=== PATIENT | male | born 1955 | race Caucasian/White ===

== ENCOUNTER 2020-01-21 23:55 | Emergency (ER) | payer MEDICARE, OTHER, SELFPAY ==
[2020-01-22 00:13] VITALS: BP 152/88; PULSE 70; RESP 18; TEMP 35.8; O2SAT 97; BMI 33.9
--- NOTE | 2020-01-22 00:41 | ECG_ITS ---
Test Reason : REPEAT Blood Pressure : / mmHG Vent. Rate : 060 BPM Atrial Rate : 060 BPM P-R Int : 208 ms QRS Dur : 106 ms QT Int : 410 ms P-R-T Axes : 059 -59 -25 degrees QTc Int : 410 ms Normal sinus rhythm Left anterior fascicular block Nonspecific T wave abnormality When compared with ECG of 22-JAN-2020 00:03, No significant change was found Referred By: Lizbeth Shaver Electronically Signed By:FADI CÁRDENAS MD
--- NOTE | 2020-01-22 00:42 | ED_ITS ---
HPI - Chest Pain General Chief Complaint: Chest Pain Stated Complaint: CHEST PAIN Time Seen by Provider: 01/22/20 00:28 Source: patient Mode of arrival: ambulatory Limitations: no limitations History of Present Illness HPI narrative: patient comes to the hospital complaining of chest pressure for 7 hours now. Patient states he was at home watching TV when he had a sudden onset sensation of chest pressure in the left side of his chest. Patient denies shortness of breath, diaphoresis, or chest pain. Patient states the pressure has been constant, tried to ignore the symptoms, however he has a significant family history of cardiac disease. Patient denies any cardiac history for himself. MD complaint: other ( Pressure) Onset (ago): hour(s) Timing of current episode: constant Prior episodes: Yes Onset: during rest Pain location: left chest Pain radiation: none Severity: moderate Related Data Allergies Allergy/AdvReac Type Severity Reaction Status Date / Time No Known Allergies Allergy Verified 01/22/20 00:18 [No Known Allergies*] Review of Systems Review of Systems: Constitutional : No Weight loss, No Fever, No Chills, No Night Sweats, No Fatigue, No Malaise ENT/Mouth : No Hearing loss, No Ear Pain, No Nasal Congestion, No Sinus Pain, No Hoarseness, No sore throat, No Rhinorrhea, No Swallowing Difficulty Eyes: No Eye Pain, No Swelling, No Redness, No Foreign Body, No Discharge, No Vision Changes Cardiovascular : No Chest Pain, mother chest pressure on the left side, No SOB, No Dyspnea on Exertion, No Orthopnea, No Edema, No Palpitations Respiratory : No Cough, No Sputum, No Wheezing, No Smoke Exposure, No Dyspnea Gastrointestinal : No Nausea, No Vomiting, No Diarrhea, No Constipation, No abdominal Pain, No Hematochezia, No Melena Genitourinary : no irregular bleeding, No Dysuria, No Urinary Frequency, No Hematuria, No Urinary Incontinence, No Urgency, No Flank Pain, No Urinary Flow Changes, No Hesitancy Musculoskeletal : No joint pain, No Myalgias, No Joint Swelling Skin : No Skin Lesions, No rash Neuro : No Weakness, No Numbness, No Paresthesias, No Loss of Consciousness, No Dizziness, No Headache Psych : No Anxiety/Panic, No Depression, No SI/HI/AH/VH, No Social Issues, Heme/Lymph: No Bruising, No Bleeding,No Lymphadenopathy Endocrine : No Polyuria, No Polydipsia, No Temperature Intolerance PMF Past Medical History Medical History Hx of substance abuse Family History Family History (Updated 01/22/20 @ 00:44 by Lizbeth Shaver MD) Other Coronary artery disease Social History Social History Alcohol intake: never Smoking Status: Never smoker Use of substances other than those prescribed or required for medical reasons: No Advance Directives: No Advance Directives Information Provided: No Physical Exam Vital Signs: Vital Signs: Vital Signs Temp Pulse Resp BP Pulse Ox 01/22/20 04:16 66 16 128/81 97 01/22/20 02:47 67 14 01/22/20 00:13 96.5 F L 70 18 152/88 H 97 Body Mass Index 33.9 Appearance: Alert. Oriented X3. No acute distress. Eyes: Pupils equal, round and reactive to light. ENT: Pharynx normal. Neck: Normal inspection. Neck supple. No lymph nodes noted. No crepitus CVS: Normal heart rate and rhythm. Pulses normal. Normal S1 and S2, chest pressure did not improve or worsen with palpation Respiratory: No respiratory distress. Breath sounds normal. No Wheezing. No rales Abdomen: Soft and nontender. No rigidity. No distention. good BS x4 Skin: Skin warm and dry. Normal skin color. Normal skin turgor. Extremities: No lower extremity edema. No lower extremity edema. No Lacerations. No Rash Neuro: Oriented X 3. No motor deficit. No sensory deficit. Moving all extermities. No slurred speech. Course Reevaluation(s) Reevaluation #1: patient states he has very mild pressure, no chest pain, I discussed with the patient that his troponin was elevated, without have any previous troponins to compare it. at 04:00, troponin 2. Will be recheck. Troponin 2. Improved, patient is completely asymptomatic. I discussed with the patient that if he continues having chest pressure, he would likely need a stress test. EKG 2: sinus rhythm, heart rate 60, QTC 410, nonspecific T-wave inversions, unchanged from previous EKG MDM - Chest Pain Lab Data Result diagrams: 01/22/20 00:58 01/22/20 00:58 Labs: Lab Results 01/22/20 01/22/20 01/22/20 Range/Units 00:58 00:58 00:58 WBC 5.6 (4.8-10.8) X10*3/uL RBC 4.27 L (4.60-5.80) X10*6/uL Hgb 13.3 L (14.0-18.0) g/dl Hct 39.7 L (42-52) % MCV 93.0 (80-98) fL MCH 31.1 (27.0-33.0) pg MCHC 33.5 (31.0-36.0) g/dl RDW 13.2 (11.0-16.0) % Plt Count 165 (160-400) X10*3/uL MPV 10.2 (9.4-12.4) fL Immature Gran % (Auto) 0.2 (0.0-0.4) % Neut % (Auto) 58.5 (45-73) % Lymph % (Auto) 24.4 (20-40) % [place] % (Auto) 11.2 H (2-11) % Eos % (Auto) 5.3 H (0-4) % Baso % (Auto) 0.4 (0-2) % Lymph # (Auto) 1.4 (1.2-4.9) X10*3/uL [place] # (Auto) 0.6 (0.1-1.2) X10*3/uL Eos # (Auto) 0.3 (0.0-0.4) X10*3/uL Baso # (Auto) 0.0 (0.0-0.2) X10*3/uL Abs Immat Gran (auto) 0.01 (0.00-0.03) X10*3/uL Absolute Neuts (auto) 3.3 (2.0-8.3) X10*3/uL Absolute Nucleated RBC 0.000 (0.0-0.012) X10*3/uL Nucleated RBC % (auto) 0.0 (0.0-0.2) /100WBC Sodium 139 (135-145) mmol/L Potassium 4.5 (3.3-5.1) mmol/l Chloride 107 (96-108) mmol/L Carbon Dioxide 26 (22-29) mmol/L Anion Gap 11 L (12-20) BUN 24 H (9-16) mg/dL Creatinine 0.95 (0.5-1.4) mg/dL Estim Creat Clear Calc 99.4 Estimated GFR > 60 Random Glucose 103 (60-115) mg/dL Calcium 8.8 (8.4-10.2) mg/dL Troponin I High Sens 10.4 (<3.5-35.0) ng/L 01/22/20 Range/Units 04:14 WBC (4.8-10.8) X10*3/uL RBC (4.60-5.80) X10*6/uL Hgb (14.0-18.0) g/dl Hct (42-52) % MCV (80-98) fL MCH (27.0-33.0) pg MCHC (31.0-36.0) g/dl RDW (11.0-16.0) % Plt Count (160-400) X10*3/uL MPV (9.4-12.4) fL Immature Gran % (Auto) (0.0-0.4) % Neut % (Auto) (45-73) % Lymph % (Auto) (20-40) % [place] % (Auto) (2-11) % Eos % (Auto) (0-4) % Baso % (Auto) (0-2) % Lymph # (Auto) (1.2-4.9) X10*3/uL [place] # (Auto) (0.1-1.2) X10*3/uL Eos # (Auto) (0.0-0.4) X10*3/uL Baso # (Auto) (0.0-0.2) X10*3/uL Abs Immat Gran (auto) (0.00-0.03) X10*3/uL Absolute Neuts (auto) (2.0-8.3) X10*3/uL Absolute Nucleated RBC (0.0-0.012) X10*3/uL Nucleated RBC % (auto) (0.0-0.2) /100WBC Sodium (135-145) mmol/L Potassium (3.3-5.1) mmol/l Chloride (96-108) mmol/L Carbon Dioxide (22-29) mmol/L Anion Gap (12-20) BUN (9-16) mg/dL Creatinine (0.5-1.4) mg/dL Estim Creat Clear Calc Estimated GFR Random Glucose (60-115) mg/dL Calcium (8.4-10.2) mg/dL Troponin I High Sens 8.6 (<3.5-35.0) ng/L ABG Data Attestation: I personally reviewed and interpreted this ABG as follows: ( sinus rhythm, heart rate 69, QTC 443, occasional PVCs, nonspecific T-wave inversions in lead 3, no ST segment changes) Scores Heart Score History: -0- slightly suspicious ECG: -1- non specific repolarization disturbance Age: -2- > or = 65 Risk factory: -0- no risk factors known Troponin: -0- < or = normal limit Score: 3 Risk: 1.7% Discharge Plan Discharge Clinical Impression: Left chest pressure Patient Disposition: Home, Self-Care Instructions: Chest Pain (ED) Additional Instructions: please talk to your primary care physician about your ER visit, you may need a stress test. Please follow-up with your primary care physician tomorrow. If you have any worsening or new symptoms, please return to the emergency room or call 911
[2020-01-22] MEDS: Aspirin Enteric Coated 325 MG TABLET.DR PO (01:01)
[2020-01-22 01:02] LABS: Basophils Percent Auto 0.4 % (0-2); Eosinophils Absolute Auto 0.3 X10*3/uL (0.0-0.4); Eosinophils Percent Auto 5.3 % (0-4); Hematocrit 39.7 % (42-52); Hemoglobin 13.3 g/dl (14.0-18.0); Imm Gran Abs Auto 0.01 X10*3/uL (0.00-0.03); Imm Gran Pct Auto 0.2 % (0.0-0.4); Lymphocytes Absolute Auto 1.4 X10*3/uL (1.2-4.9); Lymphocytes Percent Auto 24.4 % (20-40); Mean Corpuscular HGB Conc 33.5 g/dl (31.0-36.0); Mean Corpuscular Hemoglobin 31.1 pg (27.0-33.0); Mean Platelet Volume 10.2 fL (9.4-12.4); Monocytes Absolute Auto 0.6 X10*3/uL (0.1-1.2); Monocytes Percent Auto 11.2 % (2-11); Neutrophils Absolute Auto 3.3 X10*3/uL (2.0-8.3); Neutrophils Percent Auto 58.5 % (45-73); Platelet Count 165 X10*3/uL (160-400); Red Blood Count 4.27 X10*6/uL (4.60-5.80); Red Cell Distribution Width 13.2 % (11.0-16.0); White Blood Count 5.6 X10*3/uL (4.8-10.8)
[2020-01-22 01:03] LABS: MANUAL DIFF FLAG NO
[2020-01-22 01:36] LABS: Anion Gap 11 (12-20); Blood Urea Nitrogen 24 mg/dL (9-16); Calcium 8.8 mg/dL (8.4-10.2); Carbon Dioxide 26 mmol/L (22-29); Chloride 107 mmol/L (96-108); Creatinine Clr Calc Pharmacy 99.4; Estimated Glomerular Filt Rate > 60; Glucose Random 103 mg/dL (60-115); Potassium 4.5 mmol/l (3.3-5.1); Sodium 139 mmol/L (135-145)
[2020-01-22 01:45] LABS: Troponin-I High Sensitivity 10.4 ng/L (<3.5-35.0)
[2020-01-22 02:47] VITALS: PULSE 67; RESP 14
--- NOTE | 2020-01-22 03:40 | ECG_ITS ---
Test Reason : CHEST PAIN Blood Pressure : / mmHG Vent. Rate : 069 BPM Atrial Rate : 069 BPM P-R Int : 208 ms QRS Dur : 110 ms QT Int : 414 ms P-R-T Axes : 049 -56 -07 degrees QTc Int : 443 ms Normal sinus rhythm Left anterior fascicular block Nonspecific T wave abnormality Inferior leads Abnormal ECG No previous ECGs available Referred By: Lizbeth Shaver Electronically Signed By:FADI CÁRDENAS MD
[2020-01-22 04:16] VITALS: BP 128/81; PULSE 66; RESP 16; O2SAT 97
[2020-01-22 04:52] LABS: Troponin-I High Sensitivity 8.6 ng/L (<3.5-35.0)
== END 2020-01-22 05:29 | disposition home or self-care (01) ==
PROVIDERS: Emergency Provider Emergency Medicine; PCP Internal Medicine
DX: R07.9 Chest pain, unspecified (principal)
CPT/HCPCS: 36415; 80048; 84484; 85025; 93005; 99284

== ENCOUNTER 2021-04-25 18:08 | Emergency (ER) | payer MEDICARE, SELFPAY ==
--- NOTE | ~2021-04-25 | XR_ITS ---
EXAMINATION: XR CHEST CLINICAL INFORMATION: Shortness of breath COMPARISON: Right clavicle films 07/03/2018 TECHNIQUE: Frontal view of the chest was obtained. FINDINGS: The heart and pulmonary vessels appear normal. There is question of ill-defined infiltrate and some increased density right infrahilar region and subtle airspace disease cannot be excluded. No gross consolidation. No pleural effusions. Old healed right clavicular fracture present. XR/XR chest 1V IMPRESSION: Question of subtle infiltrates right lung.
[2021-04-25 18:28] VITALS: BP 138/78; PULSE 91; RESP 18; TEMP 37; O2SAT 96; BMI 29.8
[2021-04-25 19:22] LABS: MANUAL DIFF FLAG NO
[2021-04-25 19:25] LABS: Basophils Percent Auto 0.2 % (0-2); Eosinophils Absolute Auto 0.3 X10*3/uL (0.0-0.4); Eosinophils Percent Auto 6.7 % (0-4); Hematocrit 44.7 % (42.0-52.0); Hemoglobin 14.6 g/dl (14.0-18.0); Imm Gran Abs Auto 0.01 X10*3/uL (0.00-0.03); Imm Gran Pct Auto 0.2 % (0.0-0.4); Lymphocytes Absolute Auto 0.9 X10*3/uL (1.2-4.9); Mean Corpuscular HGB Conc 32.7 g/dl (31.0-36.0); Mean Corpuscular Hemoglobin 30.9 pg (27.0-33.0); Mean Corpuscular Volume 94.7 fL (80.0-98.0); Monocytes Absolute Auto 0.8 X10*3/uL (0.1-1.2); Monocytes Percent Auto 17.9 % (2-11); Neutrophils Absolute Auto 2.4 x10*3/uL (2.0-8.3); Platelet Count 173 X10*3/uL (160-400); Red Blood Count 4.72 X10*6/uL (4.60-5.80); Red Cell Distribution Width 13.1 % (11.0-16.0); White Blood Count 4.3 X10*3/uL (4.8-10.8)
[2021-04-25 19:38] LABS: Anion Gap 13 (12-20); Blood Urea Nitrogen 15 mg/dL (9-16); Calcium 9.5 mg/dL (8.4-10.2); Carbon Dioxide 30 mmol/L (22-29); Chloride 102 mmol/L (96-108); Creatinine Clr Calc Pharmacy 99.6; Estimated Glomerular Filt Rate > 60; Glucose Random 95 mg/dL (60-115); Potassium 3.9 mmol/L (3.3-5.1); Sodium 141 mmol/L (135-145)
[2021-04-25 19:59] VITALS: PULSE 90; RESP 32; O2SAT 95
--- NOTE | 2021-04-25 20:00 | PC.NURSE ---
pt is feeling sob, has his inhaler with him and used it 3x sat 95% and still feels sob. rr 32 with pt talking in full sentences, skin pink warm and dry. rr has relaxed now to 22 and with talking sat go as high as 97% wheezing noted.
[2021-04-25 20:01] LABS: Influenza A PCR NEGATIVE (Negative); Influenza B PCR NEGATIVE (Negative); Resp Syncy Virus RNA Qual PCR NEGATIVE (Negative); SARS COV2 PCR INHOUSE POSITIVE (Negative)
== END 2021-04-25 20:59 | disposition left against medical advice (07) ==
PROVIDERS: Emergency Provider Emergency Medicine
DX: U07.1 COVID-19 (principal); J45.909 Unspecified asthma, uncomplicated
CPT/HCPCS: 0241U; 71045; 80048; 85025; 99283

== ENCOUNTER 2021-04-26 07:07 | Emergency (ER) | payer MEDICARE, SELFPAY ==
[2021-04-26 07:14] VITALS: BP 127/74; PULSE 94; RESP 19; TEMP 36.6; O2SAT 96; BMI 29.9
[2021-04-26 08:00] VITALS: BP 135/84; PULSE 82; RESP 18; TEMP 36.9; O2SAT 96
--- NOTE | 2021-04-26 08:22 | ED_ITS ---
HPI - URI/Sore Throat General Chief Complaint: Upper Respiratory Symptoms Stated Complaint: SOB Time Seen by Provider: 04/26/21 08:02 Source: patient Mode of arrival: ambulatory Limitations: no limitations History of Present Illness HPI Narrative: patient presented with upper respiratory symptoms, cough or congestion. He was seen last night he had a chest x-ray and labs a COVID test which was positive but he left before being seen by a provider here return now this morning for evaluation. He is complaining of a cough for a congestive and a denies any fever he has history of asthma MD elicited complaint: cough Pertinent past history: asthma Onset (ago): day(s) (2) Consistency: constant Severity: moderate Description of mucous: clear Able to tolerate fluids by mouth: Yes Exacerbating factors: nothing Relieving factors: nothing Related Data Home Medications Medication Instructions Recorded Confirmed albuterol sulfate 90 mcg/actuation 2 puff INHALATION Q6H PRN 02/08/20 01/17/21 aerosol inhaler (ProAir HFA) Previous Rx's Medication Instructions Recorded valacyclovir 1 gram tablet 1,000 mg PO Q8H 7 Days #21 tab 01/17/21 albuterol sulfate 90 mcg/actuation 1 inh INHALATION QID PRN #8.5 g 04/26/21 aerosol inhaler (ProAir HFA) azithromycin 250 mg tablet 250 mg PO DAILY 6 Days #6 tab 04/26/21 prednisone 20 mg tablet 60 mg PO DAILY 4 Days #12 tab 04/26/21 Allergies Allergy/AdvReac Type Severity Reaction Status Date / Time No Known Allergies Allergy Verified 01/17/21 10:44 [No Known Allergies*] Review of Systems Review of Systems: Yes all other systems are reviewed and are negative Constitutional: Constitutional: Reports no additional constitutional complaints Cardiovascular: Cardiovascular: Reports no additional cardiovascular complaints Respiratory: Respiratory: Reports no additional respiratory complaints Musculoskeletal: Musculoskeletal: Reports no additional musculoskeletal complaints Psychiatric: Psychiatric: Reports no additional psychiatric complaints PMFSH Past Medical History Medical History Generalized anxiety disorder Hx of substance abuse Tick bite of back Surgical History No pertinent past surgical history Family History Family History Father No problems noted. Mother No problems noted. Other Coronary artery disease Substance use disorder Social History Social History Housing: Condominium Alcohol intake: never Patient Tobacco Use Status: Never used Tobacco e-Cigarette/Vaping Use: Never Used Second Hand Smoke Exposure: Yes Advance Directives: Yes Advance Directives Information Provided: No Advance Directives on File: No service: No Current occupational status: employed and retired Physical Exam Vital Signs: Vital Signs: Last Vital Signs Temp 98.4 F 04/26/21 08:00 Pulse 82 04/26/21 08:55 Resp 18 04/26/21 08:55 BP 129/87 04/26/21 08:55 Pulse Ox 96 04/26/21 08:55 BMI result Body Mass Index 29.9 Const: General: cooperative and comfortable Nutritional Appearance: well nourished Orientation/consciousness: oriented to person and patient oriented x3 Limitations: no limitations HENMT: Head: Yes normal to inspection General nose exam: Normal external no se present Face and sinus: Yes normal facial exam Mouth: Normal oral and palatal mucosa present Teeth and gingiva: dentition normal Throat: Yes posterior oropharynx normal Neck: Neck: Yes normal visual inspection and Yes full ROM Thyroid: Thyroid normal Chest: Chest palpation & inspection: normal inspection of the chest Resp: Effort & Inspection: normal respiratory effort Auscultation: wheezes Cardio: Jugular venous distension: no JVD Palpation: normal PMI Rate: regular rate Rhythm: regular rhythm GI: Inspection: Yes normal to inspection Palpation (GI): Soft to palpation and not firm Percussion: Yes normal to percussion : General: Yes no CVA tenderness Back/Spine/Pelvis: Back: no CVA tenderness Skin: General skin exam: no rashes or lesions noted and elasticity normal Lesions: no lesions Rashes: no rashes Wounds: no wounds Neuro: General: oriented to person and patient oriented x3 Cranial nerves: Yes CN's II-XII intact bilaterally Cognition (Neuro): normal cognition Gait exam (Neuro): Normal gait present MDM - URI/Sore Throat MDM Narrative Medical decision making narrative: I reviewed the labs done yesterday, and an essential normal CBC and chemistry, his COVID test was positive chest x-ray done yesterday showed a question of subtle right lower lobe in. At this point is oxygenating well is not in distress he can be discharged home . I will give him antibiotic because of the question right lower lobe infiltrate and asthma as comorbidity Discharge Plan Discharge Clinical Impression: COVID-19 Patient Disposition: Home, Self-Care Instructions: COVID-19 (Coronavirus Disease 2019) (ED) Prescriptions: New azithromycin 250 mg tablet 250 mg PO DAILY 6 Days Qty: 6 RF: 0 prednisone 20 mg tablet 60 mg PO DAILY 4 Days Qty: 12 RF: 0 albuterol sulfate [ProAir HFA] 90 mcg/actuation HFA aerosol inhaler 1 inh inhalation QID PRN (Reason: shortness of breath or wheezing) Qty: 8.5 RF: 0 No Action albuterol sulfate [ProAir HFA] 90 mcg/actuation HFA aerosol inhaler 2 puff inhalation Q6H PRNRF: 0 valacyclovir 1 gram tablet 1,000 mg PO Q8H 7 Days Qty: 21 RF: 0 Interventions: ED Discharge Assessment Last Done: 04/26/21 09:01 Discharge Date/Time: 04/26/21 09:02
[2021-04-26] MEDS: predniSONE 20 MG TABLET 60 MG PO (08:54)
[2021-04-26 08:55] VITALS: BP 129/87; PULSE 82; RESP 18; O2SAT 96
== END 2021-04-26 09:02 | disposition home or self-care (01) ==
PROVIDERS: Emergency Provider Emergency Medicine; PCP Internal Medicine
DX: U07.1 COVID-19 (principal); R06.02 Shortness of breath; R05.9 Cough, unspecified; Z79.899 Other long term (current) drug therapy
CPT/HCPCS: 99283; 99284

== ENCOUNTER 2021-05-07 15:11 | Emergency (ER) | payer MEDICARE, SELFPAY ==
[2021-05-07 15:33] VITALS: BP 141/85; PULSE 86; RESP 18; TEMP 36.6; O2SAT 95; BMI 29.8
--- NOTE | 2021-05-07 16:10 | ED_ITS ---
HPI - General Adult General Chief complaint: General Medical Stated complaint: med refill Time Seen by Provider: 05/07/21 16:09 Source: patient Mode of arrival: ambulatory Limitations: no limitations History of Present Illness HPI narrative: Patient is a 66 year old male presenting to the emergency department today requesting a medication refill. Patient states that approximately 10 days ago, he was diagnosed with COVID-19, given prednisone due to his underlying history of asthma. Patient states he ran out of his prednisone, and now he is concerned feeling like he had increased shortness of breath today. Patient denies any current dizziness, lightheadedness, abdominal pain, nausea, vomiting, fever, chills, blurry vision, double vision, loss of vision, chest pain, difficulty breathing, shortness of breath, back pain, night sweats, pain with urination, increased urinary frequency, increased urinary urgency, blood in his urine or stool, syncope or a near syncopal episode, recent trauma or falls, bowel incontinence, bladder incontinence, bowel retention, bladder retention, or any other complaints at this time. Patient states that he would like a refill of his inhaler as well. Patient states that he plans to call his physician as soon as he leaves the department today. Related Data Home Medications Medication Instructions Recorded Confirmed albuterol sulfate 90 2 puff INHALATION Q6H PRN 02/08/20 01/17/21 mcg/actuation aerosol inhaler (ProAir HFA) Previous Rx's Medication Instructions Recorded valacyclovir 1 gram tablet 1,000 mg PO Q8H 7 Days #21 tab 01/17/21 albuterol sulfate 90 mcg/actuation 1 inh INHALATION QID PRN #8.5 g 04/26/21 aerosol inhaler (ProAir HFA) azithromycin 250 mg tablet 250 mg PO DAILY 6 Days #6 tab 04/26/21 prednisone 20 mg tablet 60 mg PO DAILY 4 Days #12 tab 04/26/21 albuterol sulfate 90 mcg/actuation 90 mcg INHALATION Q6H PRN #1 ea 05/07/21 breath activated powder inhaler,sensor Allergies Allergy/AdvReac Type Severity Reaction Status Date / Time No Known Allergies Allergy Verified 05/07/21 15:33 [No Known Allergies*] Review of Systems Verdana 4l Constitutional: Verdana 4d Verdana 4d Constitutional: Verdana 4d Reports no additional constitutional complaints, Denies chills, Denies fever(s) and Denies night sweats Verdana 4l Eyes: Verdana 4d Verdana 4d Eyes: Verdana 4d Reports no additional eye complaints, Denies blurry vision, Denies change in vision, Denies diplopia, Denies eye discharge, Denies loss of vision and Denies eye pain Verdana 4l ENT: Verdana 4d Denies dizziness Verdana 4l Cardiovascular: Verdana 4d Verdana 4d Cardiovascular: Verdana 4d Reports no additional cardiovascular complaints, Denies chest pain, Denies lightheadedness, Denies Loss of Consciousness and Denies dyspnea Verdana 4l Respiratory: Verdana 4d Verdana 4d Respiratory: Verdana 4d Reports no additional respiratory complaints and Denies dyspnea Verdana 4l Gastrointestinal: Verdana 4d Verdana 4d Gastrointestinal: Verdana 4d Reports no additional gastrointestinal complaints, Denies abdominal pain, Denies melena, Denies hematochezia, Denies change in bowel habits and Denies change in stool character Verdana 4l Genitourinary: Verdana 4d Verdana 4d Genitourinary: Verdana 4d Reports no additional male genitourinary complaints, Denies hematuria, Denies oliguria, Denies difficulty urinating, Denies dysuria, Denies urinary frequency, Denies urinary hesitancy, Denies urinary incontinenceincontinence and Denies urinary urgency Musculoskeletal: Musculoskeletal: Reports no additional musculoskeletal complaints, Denies numbness and Denies tingling Neurologic: Denies dizziness, Denies loss of vision, Denies numbness and Denies tingling Psychiatric: Psychiatric: Reports no additional psychiatric complaints Endocrine: Endocrine: Reports no additional endocrine complaints Hematologic/Lymphatic: Hematologic/Lymphatic: Reports no additional hematologic/lymphatic complaints Allergic/Immunologic: Allergic/Immunologic: Reports no additional allergic/immunologic complaints PMFSH Past Medical History Attestation statement: The following information was validated with the patient. Source: old records reviewed Medical History Generalized anxiety disorder Hx of substance abuse Tick bite of back Surgical History No pertinent past surgical history Family History Family History Father No problems noted. Mother No problems noted. Other Coronary artery disease Substance use disorder Social History Social History Housing: Condominium Alcohol intake: never Patient Tobacco Use Status: Never used Tobacco e-Cigarette/Vaping Use: Never Used Second Hand Smoke Exposure: Yes Advance Directives: No Advance Directives Information Provided: Yes service: No Current occupational status: employed and retired Physical Exam Verdana 4l Vital Signs: Verdana 4d Verdana 4d Vital Signs: Verdana 4d Verdana 4Bd Last Vital Signs Verdana 4d Incident Response Engineer New 4d Incident Response Engineer New 4d Temp 98 F 05/07/21 15:33 Incident Response Engineer New 4d Pulse 86 05/07/21 15:33 Incident Response Engineer New 4d Resp 18 05/07/21 15:33 BP 141/85 H 05/07/21 15:33 Pulse Ox 95 05/07/21 15:33 BMI result Body Mass Index 29.8 Const: General: cooperative, no acute distress, alert and awake Nutritional Appearance: well nourished Orientation/consciousness: patient oriented x3 Limitations: no limitations HENMT: Head: Yes normal to inspection and Yes atraumatic Ears: hearing grossly normal bilaterally and external ears normal General nose exam: Normal external nose present, no nasal discharge noted and no epistaxis Face and sinus: Yes normal facial exam, No abrasion and No laceration Mouth: Normal oral and palatal mucosa present, no drooling and no muffled voice Eyes: General: appearance normal, both eyes and all related structures Periorbital: periorbital findings normal Eyelids: Yes eyelids normal Conjunctivae: conjunctivae normal Pupils: Equal, round and reactive pupils present EOM: EOMs intact bilaterally Neck: Neck: Yes normal visual inspection, Yes full ROM and Yes no lymphadenopathy Chest: Chest palpation & inspection: normal inspection of the chest Resp: Effort & Inspection: normal respiratory effort and able to speak in complete sentences Auscultation: clear to auscultation bilaterally Cardio: Rate: regular rate Rhythm: regular rhythm GI: Inspection: Yes normal to inspection Neuro: General: patient oriented x3 and moves all extremities Cranial nerves: Yes Equal, round and reactive pupils present Cognition (Neuro): normal cognition Motor exam (neuro): 5/5 motor strength present throughout Sensory Exam: Normal double simultaneous stimulation for sensation Coordination: [id number] test normal Extrem: General: Yes normal to inspection, Yes full ROM and Yes capillary refill normal Psych: Appearance: grossly normal Mental Status: mental status grossly normal Affect: normal affect Attitude: cooperative Thought process: Normal thought process present Thought content: Normal thought content present Insight: Good insight present (Psych) Medical Decision Making MDM Narrative Medical decision making narrative: Patient is a 66 year old male presenting to the emergency department today requesting medication refill. Patient's physical exam was unremarkable. Patient was in no acute distress. I explained my physical exam findings to the patient. I answered all questions asked by the patient. I explained, in detail, the risks of prolonged prednisone use, in the absence of acute respiratory symptoms. I explained to the patient, but I will give him a 1 time dose here, that is 48 hour lasting. Patient received IM Decadron which he stated helped his symptoms significantly. I stressed the importance of the patient taking his regular medication as prescribed, including the use of his inhaler. I stressed the importance of the patient following up with his primary care provider. I stressed the importance of the patient returning to the emergency department immediately if his symptoms were to worsen or if he were to develop any dizziness, shortness of breath, difficulty breathing, chest pain, blurry vision, loss of vision, nausea, vomiting, abdominal pain, fever, chills, back pain, or any other complaints. Patient verbalized agreement and understanding with this treatment plan and discharge. Differential Diagnosis Differential Diagnosis: Medication refill, medical examination, history of asthma, COVID-19 Medical Records Medical records reviewed: Yes I reviewed the patient's medical records. Discharge Plan Discharge Clinical Impression: COVID-19, Asthma Patient Disposition: Home, Self-Care Instructions: COVID-19 (Coronavirus Disease 2019) (ED) Prescriptions: New albuterol sulfate 90 mcg/actuation aero powdr breath act w/sensor 90 mcg inhalation Q6H PRN (Reason: shortness of breath or wheezing) Qty: 1 0RF No Action azithromycin 250 mg tablet 250 mg PO DAILY 6 Days Qty: 6 0RF Rx Instructions: start on day 2 of therapy prednisone 20 mg tablet 60 mg PO DAILY 4 Days Qty: 12 0RF albuterol sulfate [ProAir HFA] 90 mcg/actuation HFA aerosol inhaler 1 inh inhalation QID PRN (Reason: shortness of breath or wheezing) Qty: 8.5 0RF albuterol sulfate [ProAir HFA] 90 mcg/actuation HFA aerosol inhaler 2 puff inhalation Q6H PRN0RF valacyclovir 1 gram tablet 1,000 mg PO Q8H 7 Days Qty: 21 0RF Referrals: Zafar Wilson MD [Primary Care Provider] - 2 days Interventions: ED Discharge Assessment Last Done: 05/07/21 16:44 Discharge Date/Time: 05/07/21 16:46 Print Language: Icelandic
[2021-05-07] MEDS: dexAMETHasone sod phosphate 10 MG/ML VIAL IM (16:42)
== END 2021-05-07 16:46 | disposition home or self-care (01) ==
PROVIDERS: Emergency Provider Emergency Medicine; PCP Internal Medicine
DX: U07.1 COVID-19 (principal); J45.909 Unspecified asthma, uncomplicated; Z76.0 Encounter for issue of repeat prescription; Z79.899 Other long term (current) drug therapy
CPT/HCPCS: 96372; 99283; 99284; J1100

== ENCOUNTER 2021-05-26 06:51 | Emergency (ER) | payer MEDICARE, SELFPAY ==
--- NOTE | ~2021-05-26 | XR_ITS ---
EXAMINATION: XR CHEST CLINICAL INFORMATION: Shortness of breath and cough COMPARISON: April 25, 2021 TECHNIQUE: AP portable view of the chest was obtained. FINDINGS: There is no evidence of acute parenchymal disease, pneumothorax, or pleural effusion. Heart normal size. No evidence of pulmonary edema. Old healed right clavicle fracture present. XR/XR chest 1V IMPRESSION: No acute disease.
[2021-05-26 07:00] VITALS: BP 102/80; PULSE 73; RESP 20; TEMP 36.1; O2SAT 94; BMI 29.1
[2021-05-26 07:23] VITALS: BP 140/83; PULSE 70; RESP 18; TEMP 36.6; O2SAT 95
--- NOTE | 2021-05-26 07:25 | ED_ITS ---
HPI - Asthma General Chief Complaint: Asthma Stated Complaint: asthma diff breathing Time Seen by Provider: 05/26/21 07:11 Source: patient Mode of arrival: ambulatory History of Present Illness HPI Narrative: 66-year-old male with past medical history of anxiety, asthma, COVID-19 on 04/25/2021, presenting to the ED complaining of asthma exacerbation with increasing SOB, wheezing, and productive cough since last night. Admits symptoms similar to prior asthma exacerbations in the past. Admits ran out of inhaler and nebulized albuterol/ saline. Denies chest pain, fever, pedal edema, calf pain, recent travel MD complaint: asthma attack and shortness of breath Onset (ago): day(s) Related Data Home Medications Medication Instructions Recorded Confirmed albuterol sulfate 90 mcg/actuation 2 puff INHALATION Q6H PRN 02/08/20 01/17/21 aerosol inhaler (ProAir HFA) Previous Rx's Medication Instructions Recorded valacyclovir 1 gram tablet 1,000 mg PO Q8H 7 Days #21 tab 01/17/21 albuterol sulfate 90 mcg/actuation 1 inh INHALATION QID PRN #8.5 g 04/26/21 aerosol inhaler (ProAir HFA) azithromycin 250 mg tablet 250 mg PO DAILY 6 Days #6 tab 04/26/21 prednisone 20 mg tablet 60 mg PO DAILY 4 Days #12 tab 04/26/21 albuterol sulfate 90 mcg/actuation 90 mcg INHALATION Q6H PRN #1 ea 05/07/21 breath activated powder inhaler,sensor albuterol sulfate 2.5 mg/0.5 mL 5 mg INHALATION Q4H PRN #30 ea 05/26/21 solution for nebulization albuterol sulfate 90 mcg/actuation 2 puff INHALATION Q4-6H PRN #6.7 g 05/26/21 aerosol inhaler prednisone 20 mg tablet 40 mg PO DAILY 5 Days #10 tab 05/26/21 Allergies Allergy/AdvReac Type Severity Reaction Status Date / Time No Known Allergies Allergy Verified 05/26/21 12:03 [No Known Allergies*] Review of Systems Review of Systems: Constitutional: No Fever, No Chills, No Fatigue, No Malaise ENT/Mouth: No Ear Pain, No Nasal Congestion, No sore throat, No Rhinorrhea, No Swallowing Difficulty Eyes: No Eye Pain, No Swelling, No Redness Cardiovascular: No Chest Pain, + SOB, No Dyspnea on Exertion, No Orthopnea, No Edema, No Palpitations Respiratory: + Cough, + Sputum, + Wheezing, No Smoke Exposure, + Dyspnea Gastrointestinal: No Nausea, No Vomiting, No Diarrhea,No Abdominal pain Genitourinary: No irregular bleeding, No Dysuria Musculoskeletal: No joint pain, No Myalgias, No Joint Swelling Skin: No Skin Lesions, No rash Neuro: No Weakness, No Headache Yes all other systems are reviewed and are negative [facility] Past Medical History Attestation statement: The following information was validated with the patient. Medical History Generalized anxiety disorder Hx of substance abuse Tick bite of back Surgical History No pertinent past surgical history Family History Family History Father No problems noted. Mother No problems noted. Other Coronary artery disease Substance use disorder Social History Social History Housing: Condominium Alcohol intake: never Patient Tobacco Use Status: Never used Tobacco e-Cigarette/Vaping Use: Never Used Second Hand Smoke Exposure: Yes Substance Use Type: Heroin service: No Current occupational status: employed and retired Physical Exam Vital Signs: Vital Signs: Last Vital Signs Temp 98.8 F 05/26/21 10:02 Pulse 85 05/26/21 10:31 Resp 18 05/26/21 10:31 BP 118/73 05/26/21 10:02 Pulse Ox 97 05/26/21 10:02 BMI result Body Mass Index 29.1 Const: General: cooperative, healthy appearing and no acute distress Orientation/consciousness: patient oriented x3 Limitations: no limitations HENMT: Head: Yes normal to inspection and Yes atraumatic Ears: hearing grossly normal bilaterally General nose exam: Normal external nose present Face and sinus: Yes normal facial exam Eyes: General: appearance normal, both eyes and all related structures EOM: EOMs intact bilaterally Neck: Neck: Yes normal visual inspection and Yes no meningeal signs Resp: Effort & Inspection: normal respiratory effort Auscultation: wheezes expiratory wheezes, inspiratory wheezes and throughout Cardio: Rate: regular rate Heart sounds: S1 normal heart sound present and S2 normal heart sound present GI: Inspection: Yes normal to inspection Palpation (GI): Soft to palpation, nontender, no guarding and not rigid Skin: Rashes: no rashes Wounds: no wounds Neuro: General: patient oriented x3 and no meningeal signs Gait exam (Neuro): Normal gait present Extrem: General: Yes normal to inspection, Yes no pedal edema and Yes no calf tenderness Course Course Course Narrative: - no leukocytosis. H&H stable. Labs otherwise unremarkable. - COVID negative -1030-- on re-evaluation patient with better air movement still diffuse expiratory wheeze. Additional DuoNeb ordered -1140-- on re-evaluation lungs CTA. Patient feels safe for discharge at this time. - CXR unremarkable MDM - Asthma MDM Narrative Medical decision making narrative: 66-year-old male with past medical history of anxiety, asthma, COVID-19 on 04/25/2021, presenting to the ED complaining of asthma exacerbation with increasing SOB, wheezing, and productive cough since last night. on exam vital signs, NAD/ nontoxic appearing, lungs with diffuse with diffuse inspiratory/ expiratory wheezing/ coarse lung sounds, no pedal edema/ continence. Concern for asthma exacerbation vs viral syndrome. Rule pneumonia. Unlikely ACS/PE or CHF plan: EKG, labs, CXR, COVID-19 testing, Solu-Medrol, magnesium, DuoNeb, re- evaluate Differential Diagnosis Differential diagnosis: Likely Acute exacerbation and Pneumonia Medical Records Attestation: I reviewed the patient's medical records. Lab Data Attestation: I reviewed the patient's lab results. Result diagrams: 05/26/21 07:54 05/26/21 07:54 Labs: Lab Results 05/26/21 05/26/21 05/26/21 Range/Units 07:54 07:54 07:54 WBC 5.6 (4.8-10.8) X10*3/uL RBC 4.52 L (4.60-5.80) X10*6/uL Hgb 13.7 L (14.0-18.0) g/dl Hct 41.9 L (42.0-52.0) % MCV 92.7 (80.0-98.0) fL MCH 30.3 (27.0-33.0) pg MCHC 32.7 (31.0-36.0) g/dl RDW 13.4 (11.0-16.0) % Plt Count 217 D (160-400) X10*3/uL MPV 10.0 (9.4-12.4) fL Immature Gran % (Auto) 0.2 (0.0-0.4) % Neut % (Auto) 84.2 H (45-73) % Lymph % (Auto) 10.3 L (20-40) % [place] % (Auto) 3.5 (2-11) % Eos % (Auto) 1.4 (0-4) % Baso % (Auto) 0.4 (0-2) % Lymph # (Auto) 0.6 L (1.2-4.9) X10*3/uL [place] # (Auto) 0.2 (0.1-1.2) X10*3/uL Eos # (Auto) 0.1 (0.0-0.4) X10*3/uL Baso # (Auto) 0.0 (0.0-0.2) X10*3/uL Abs Immat Gran (auto) 0.01 (0.00-0.03) X10*3/uL Absolute Neuts (auto) 4.8 (2.0-8.3) x10*3/uL Absolute Nucleated RBC 0.000 (0.0-0.012) X10*3/uL Nucleated RBC % (auto) 0.0 (0.0-0.2) /100WBC Sodium 138 (135-145) mmol/L Potassium 4.3 (3.3-5.1) mmol/L Chloride 103 (96-108) mmol/L Carbon Dioxide 29 (22-29) mmol/L Anion Gap 10 L (12-20) BUN 15 (9-16) mg/dL Creatinine 0.81 (0.5-1.4) mg/dL Estim Creat Clear Calc 107.1 Estimated GFR > 60 Random Glucose 121 H (60-115) mg/dL Calcium 9.3 (8.4-10.2) mg/dL COVID-19 ([facility]EN) Negative (Negative) COVID-19 Clin Com See Note ECG Data Attestation: I personally reviewed and interpreted this ECG as follows: ECG interpretation date: 05/26/21 ECG interpretation time: 07:45 Interpretation: EKG sinus Az rate of 59 with sinus arrhythmia. QTC 429. No STEMI. Discharge Plan Discharge Clinical Impression: Asthma with acute exacerbation Patient Disposition: Home, Self-Care Instructions: Asthma (DC) Additional Instructions: your blood work was reassuring today. Your chest x-ray looks okay. He tested negative for COVID-19. You are having asthma exacerbation. you need to use your nebulizer machine at home. You also need to use your inhalers. Prednisone as a steroid, please take as prescribed. Please follow-up with her doctor. If her symptoms persist or worsen, if constant worsening shortness breath, cough, developed chest pain or fever please return to the emergency department Prescriptions: New albuterol sulfate 90 mcg/actuation HFA aerosol inhaler 2 puff inhalation Q4-6H PRN (Reason: shortness of breath or wheezing) Qty: 6.7 0RF albuterol sulfate 2.5 mg/0.5 mL solution for nebulization 5 mg inhalation Q4H PRN (Reason: shortness of breath or wheezing) Qty: 30 0RF prednisone 20 mg tablet 40 mg PO DAILY 5 Days Qty: 10 0RF No Action azithromycin 250 mg tablet 250 mg PO DAILY 6 Days Qty: 6 0RF Rx Instructions: start on day 2 of therapy prednisone 20 mg tablet 60 mg PO DAILY 4 Days Qty: 12 0RF albuterol sulfate [ProAir HFA] 90 mcg/actuation HFA aerosol inhaler 1 inh inhalation QID PRN (Reason: shortness of breath or wheezing) Qty: 8.5 0RF albuterol sulfate 90 mcg/actuation aero powdr breath act w/sensor 90 mcg inhalation Q6H PRN (Reason: shortness of breath or wheezing) Qty: 1 0RF albuterol sulfate [ProAir HFA] 90 mcg/actuation HFA aerosol inhaler 2 puff inhalation Q6H PRN0RF valacyclovir 1 gram tablet 1,000 mg PO Q8H 7 Days Qty: 21 0RF Referrals: Zafar Wilson MD [Primary Care Provider] - 2 days Interventions: ED Discharge Assessment Last Done: 05/26/21 12:05 Discharge Date/Time: 05/26/21 12:07
--- NOTE | 2021-05-26 07:29 | ECG_ITS ---
Test Reason : etoh Blood Pressure : / mmHG Vent. Rate : 059 BPM Atrial Rate : 059 BPM P-R Int : 206 ms QRS Dur : 112 ms QT Int : 434 ms P-R-T Axes : 034 -67 -18 degrees QTc Int : 429 ms Sinus bradycardia with sinus arrhythmia Incomplete right bundle branch block Left anterior fascicular block Minimal voltage criteria for LVH, may be normal variant ( Mohit product ) Septal infarct , age undetermined Abnormal ECG When compared with ECG of 22-JAN-2020 04:30, Incomplete right bundle branch block is now Present Septal infarct is now Present Referred By: Christy Quinn Electronically Signed By:SOL COYLE MD
[2021-05-26] MEDS: Albuterol Sulfate (0.083%) 2.5 MG/3 ML VIAL.NEB 5 MG INHALE ×2 (07:45→10:31)
[2021-05-26] MEDS: Albuterol/Iprat 2.5/0.5MG 3 ML AMPUL.NEB INHALE ×2 (07:48→10:31)
[2021-05-26 07:49] VITALS: PULSE 70; RESP 18; O2SAT 94
[2021-05-26 08:00] VITALS: BP 128/74; PULSE 94; RESP 18; O2SAT 94
[2021-05-26 08:02] LABS: MANUAL DIFF FLAG NO
[2021-05-26 08:05] LABS: Basophils Percent Auto 0.4 % (0-2); Eosinophils Absolute Auto 0.1 X10*3/uL (0.0-0.4); Eosinophils Percent Auto 1.4 % (0-4); Hematocrit 41.9 % (42.0-52.0); Hemoglobin 13.7 g/dl (14.0-18.0); Imm Gran Abs Auto 0.01 X10*3/uL (0.00-0.03); Imm Gran Pct Auto 0.2 % (0.0-0.4); Lymphocytes Absolute Auto 0.6 X10*3/uL (1.2-4.9); Lymphocytes Percent Auto 10.3 % (20-40); Mean Corpuscular HGB Conc 32.7 g/dl (31.0-36.0); Mean Corpuscular Hemoglobin 30.3 pg (27.0-33.0); Mean Corpuscular Volume 92.7 fL (80.0-98.0); Monocytes Absolute Auto 0.2 X10*3/uL (0.1-1.2); Monocytes Percent Auto 3.5 % (2-11); Neutrophils Absolute Auto 4.8 x10*3/uL (2.0-8.3); Neutrophils Percent Auto 84.2 % (45-73); Platelet Count 217 X10*3/uL (160-400); Red Blood Count 4.52 X10*6/uL (4.60-5.80); Red Cell Distribution Width 13.4 % (11.0-16.0); White Blood Count 5.6 X10*3/uL (4.8-10.8)
[2021-05-26] MEDS: Magnesium Sulfate/H2O 2 GM/50 ML PIGGYBACK IV (08:09)
[2021-05-26] MEDS: methylPREDNISolone Sod Succ 125 MG/2 ML VIAL IVPUSH (08:09)
[2021-05-26 08:17] LABS: COVID-19 Test Negative (Negative)
[2021-05-26 08:28] LABS: Anion Gap 10 (12-20); Blood Urea Nitrogen 15 mg/dL (9-16); Calcium 9.3 mg/dL (8.4-10.2); Carbon Dioxide 29 mmol/L (22-29); Chloride 103 mmol/L (96-108); Creatinine Clr Calc Pharmacy 107.1; Estimated Glomerular Filt Rate > 60; Glucose Random 121 mg/dL (60-115); Potassium 4.3 mmol/L (3.3-5.1); Sodium 138 mmol/L (135-145)
--- NOTE | 2021-05-26 09:53 | PC.NURSE ---
reports feeling better. LS have increased air movement and only faint wheeze. unlabored resp. awaits reeval from provider
[2021-05-26 10:02] VITALS: BP 118/73; PULSE 73; RESP 19; TEMP 37.1; O2SAT 97
--- NOTE | 2021-05-26 10:11 | MHC.RECOVSUP ---
Recovery Support note: Patient is a 66 year old [place]i speaking male who presented to [facility] [place] ED due to an asthma attack. Patient reported to ED staff that he uses heroin daily and would like to stop. This technical report writer met with patient to discuss heroin use and treatment options. Patient reports last summer he injured his back and was given heroin by a friend. Patient reports he felt great and continued to use heroin periodically nasally. Patient reports he used it too many days in a row and began to experience withdrawal symptoms. Patient reports he went 3 days without using however could not tolerate the withdrawal any longer. Discussed ATS, methadone and Suboxone. 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 Patient is familiar with methadone and Suboxone and reports his son has been on methadone for 20 years. Patient reports he would like to get on Suboxone when his asthma situation is under control. Discussed home induction of Suboxone. Patient provided with information on the [facility] and contact information for this technical report writer. Discussed case with patient's RN.
[2021-05-26 10:31] VITALS: PULSE 85; RESP 18; O2SAT 92
== END 2021-05-26 12:07 | disposition home or self-care (01) ==
PROVIDERS: Physician Assistant; Emergency Provider Emergency Medicine; PCP Internal Medicine
DX: J45.901 Unspecified asthma with (acute) exacerbation (principal); Z20.822 Contact with and (suspected) exposure to COVID-19
CPT/HCPCS: 36415; 71045; 80048; 85025; 87635; 93005; 94640; 94644; 94645; 96365; 96366; 96375; 99284; 99285; J2930; J3475

== ENCOUNTER 2022-04-04 07:05 | Emergency (ER) | payer MEDICARE, SELFPAY ==
[2022-04-04 07:06] VITALS: BP 123/69; PULSE 77; RESP 18; TEMP 36.7; O2SAT 95; BMI 29.1
[2022-04-04 07:16] VITALS: BP 83/47; PULSE 78; RESP 20; TEMP 36.7; O2SAT 97
--- NOTE | 2022-04-04 07:41 | PC.NURSE ---
upper top right back tooth painful. swollen face noted (x 4 days per patient). Denies fevers. Waiting to be evaluate by doctor
--- NOTE | 2022-04-04 08:21 | ED_ITS ---
HPI - Dental/Oral General Chief complaint: Dental/Oral Stated complaint: tooth ache Time Seen by Provider: 04/04/22 07:16 Source: patient Mode of arrival: ambulatory History of Present Illness HPI Narrative: 67-year-old male with upper tooth infection without fever or chills and denies any difficulty swallowing or breathing and says that his cheek is now mildly swollen. He denies any associated ear or throat pain. Related Data Previous Rx's Medication Instructions Recorded albuterol sulfate 2.5 mg/0.5 mL 5 mg inhalation Q4H PRN shortness 06/08/21 solution for nebulization of breath or wheezing #30 ea albuterol sulfate 90 mcg/actuation 90 mcg inhalation Q6H PRN 06/08/21 breath activated powder shortness of breath or wheezing #1 inhaler,sensor ea albuterol sulfate 90 mcg/actuation 1 inh inhalation QID PRN shortness 06/09/21 aerosol inhaler (ProAir HFA) of breath or wheezing #8.5 grams prednisone 20 mg tablet 40 mg PO DAILY 5 days #10 tabs 06/09/21 amoxicillin 875 mg-potassium 1 tab PO Q12H 7 days #14 tabs 04/04/22 clavulanate 125 mg tablet Allergies Allergy/AdvReac Type Severity Reaction Status Date / Time No Known Allergies Allergy Verified 06/08/21 10:56 [No Known Allergies*] Review of Systems Review of Systems: Pertinent positives and negatives as stated in HPI. [facility] Past Medical History Source: nursing notes reviewed Medical History Generalized anxiety disorder Hx of substance abuse Tick bite of back Surgical History No pertinent past surgical history Family History Family History Father No problems noted. Mother No problems noted. Other Coronary artery disease Substance use disorder Social History Social History Housing: Condominium Alcohol intake: never Patient Tobacco Use Status: Never used Tobacco e-Cigarette/Vaping Use: Never Used Second Hand Smoke Exposure: Yes Substance Use Type: Heroin Advance Directives: No Advance Directives Information Provided: Yes service: No Current occupational status: employed and retired Cognitive needs: No Hearing needs: No Vision needs: No Physical Exam Vital Signs: Vital Signs: Last Vital Signs Temp 98.1 F 04/04/22 07:16 Pulse 78 04/04/22 07:16 Resp 20 04/04/22 07:16 BP 83/47 L 04/04/22 07:16 Pulse Ox 97 04/04/22 07:16 O2 Del Method 04/04/22 07:16 BMI result Body Mass Index 29.1 VITAL SIGNS: Reviewed. GENERAL: Well developed, well nourished, in no acute distress. HEAD: Normocephalic/atraumatic EYES: PERRLA, EOMI EARS: Ext canals without abnormality, TMs non-bulging and non-erythematous NOSE: Nares patent bilateral OROPHARYNX: no oral lesions noted, posterior pharynx clear and non-erythematous without noted tonsillar enlargement/erythema/exudates, no trismus, several dental caries but there appears to be a broken molar with associated gingival swelling at the right upper jaw there is some mild associated facial swelling without erythema or induration NECK: Supple, no adenopathy LUNGS: Normal breath sounds. No adventitious sounds or accessory muscle use. SpO2<97> CARDIOVASCULAR: Regular rate and rhythm without noted murmurs ABDOMEN: Soft, non-tender, non-distended with bowel sounds. NEUROLOGIC: Alert and oriented x 4. Strength and sensation to light touch were grossly intact x 4. Medical Decision Making Medical Decision Making MDM Narrative: 67-year-old male with history and clinical presentation consistent with tooth infection with a broken tooth in poor dental care. There is no evidence of trismus or associated difficulty with breathing or swallowing and no evidence of associated ear infection. Patient received combination analgesics as well as initial antibiotics here in the emergency room and then was discharged home in stable condition. The plan and treatment were discussed with patient at bedside. Discharge Plan Discharge Clinical Impression: Dental infection, Toothache Patient Disposition: Home, Self-Care Instructions: Dental Abscess (ED), Toothache (ED) Additional Instructions: 1. Recommend [id number] Tylenol/ibuprofen as needed for pain control. 2. Complete the entire course of antibiotics as ordered. 3. Follow-up with a dentist as soon as possible. Return to the ER for worsening symptoms. Prescriptions: New amoxicillin-pot clavulanate 875-125 mg tablet 1 tab PO Q12H 7 Days Qty: 14 0RF No Action albuterol sulfate 2.5 mg/0.5 mL solution for nebulization 5 mg inhalation Q4H PRN (Reason: shortness of breath or wheezing) Qty: 30 0RF albuterol sulfate 90 mcg/actuation aero powdr breath act w/sensor 90 mcg inhalation Q6H PRN (Reason: shortness of breath or wheezing) Qty: 1 0RF prednisone 20 mg tablet 40 mg PO DAILY 5 Days Qty: 10 0RF albuterol sulfate [ProAir HFA] 90 mcg/actuation HFA aerosol inhaler 1 inh inhalation QID PRN (Reason: shortness of breath or wheezing) Qty: 8.5 0RF Referrals: Zafar Wilson MD [Primary Care Provider] -
[2022-04-04] MEDS: Acetaminophen 325 MG TABLET 975 MG PO (09:05)
[2022-04-04] MEDS: Ibuprofen 400 MG TABLET PO (09:05)
[2022-04-04] MEDS: Amoxicillin/Potassium Clav 875 MG TABLET PO (09:05)
== END 2022-04-04 09:10 | disposition home or self-care (01) ==
PROVIDERS: Emergency Provider Student in an Organized Health Care Education/Training Program; PCP Internal Medicine
DX: K04.7 Periapical abscess without sinus (principal)
CPT/HCPCS: 99283

== ENCOUNTER 2022-06-14 11:28 | Emergency (ER) | payer MEDICARE, SELFPAY ==
--- NOTE | ~2022-06-14 | XR_ITS ---
EXAMINATION: XR CHEST CLINICAL INFORMATION: Shortness of breath COMPARISON: 05/26/2021 TECHNIQUE: 2 views of the chest were obtained. FINDINGS: No significant abnormality is noted involving the heart, lungs, mediastinum, bony thorax or soft tissues. An old healed right clavicular fracture again noted. XR/XR chest 2V IMPRESSION: Unremarkable examination.
[2022-06-14 11:35] VITALS: BP 122/90; PULSE 114; RESP 20; TEMP 36.6; O2SAT 96; BMI 25.7
--- NOTE | 2022-06-14 11:35 | ED.SOB ---
HPI - SOB/Dyspnea General Chief Complaint: Upper Respiratory Symptoms Stated Complaint: Diff breathing Time Seen by Provider: 06/14/22 12:38 Related Data Previous Rx's Medication Instructions Recorded albuterol sulfate 2.5 mg/0.5 mL 5 mg inhalation Q4H PRN shortness 06/08/21 solution for nebulization of breath or wheezing #30 ea albuterol sulfate 90 mcg/actuation 90 mcg inhalation Q6H PRN 06/08/21 breath activated powder shortness of breath or wheezing #1 inhaler,sensor ea albuterol sulfate 90 mcg/actuation 1 inh inhalation QID PRN shortness 06/09/21 aerosol inhaler (ProAir HFA) of breath or wheezing #8.5 grams prednisone 20 mg tablet 40 mg PO DAILY 5 days #10 tabs 06/09/21 amoxicillin 875 mg-potassium 1 tab PO Q12H 7 days #14 tabs 04/04/22 clavulanate 125 mg tablet Allergies Allergy/AdvReac Type Severity Reaction Status Date / Time No Known Allergies Allergy Verified 06/08/21 10:56 [No Known Allergies*] PMFSH Past Medical History Medical History Generalized anxiety disorder Hx of substance abuse Tick bite of back Surgical History No pertinent past surgical history Family History Family History Father No problems noted. Mother No problems noted. Other Coronary artery disease Substance use disorder Social History Social History Housing: Condominium Alcohol intake: never Patient Tobacco Use Status: Never used Tobacco Smoked in Last 30 Days: No e-Cigarette/Vaping Use: Never Used Second Hand Smoke Exposure: Yes Use of substances other than those prescribed or required for medical reasons: Yes Substance Use Type: Heroin Advance Directives: No Advance Directives Information Provided: Yes service: No Current occupational status: employed and retired Cognitive needs: No Hearing needs: No Vision needs: No Physical Exam Vital Signs: Vital Signs: Last Vital Signs Temp 98.5 F 06/14/22 13:53 Pulse 87 06/14/22 13:53 Resp 16 06/14/22 13:53 BP 116/72 06/14/22 13:53 Pulse Ox 96 06/14/22 13:53 O2 Del Method Room Air 06/14/22 13:53 BMI result Body Mass Index 25.7 Course Course Course Narrative: This is an RME: Additional HPI, ROS, PE not included below will be deferred to primary provider. Patient is a 67-year-old male with history of asthma who presents to emergency department for evaluation of shortness of breath. Onset of symptoms approximately 2 weeks ago which has been progressively worsening. Was advised by his primary care provider to be evaluated at urgent care, but he did not feel he could make it there today. He has been using nebulizer treatments with only minimal improvement. States he is not currently taking any steroids. Reports a subjective fever last night. PE: tachypnea, tachycardia. LS tight at bases, expiratory wheezing throughout, no stridor, no tripoding, speaking full sentences Plan: viral testing, CXR, labs, EKG Medications Administered Discontinued Medications Generic Name Dose Route Start Last Admin Trade Name Rashad PRN Reason Stop Dose Admin Buprenorphine/Naloxone 1 film 06/14/22 13:33 06/14/22 14:06 Buprenorphine/Naloxone 8/2 Mg Film SUBLINGUAL 06/14/22 13:34 Not Given ONCE ONE Methadone HCl 25 mg 06/14/22 13:50 06/14/22 14:04 Methadone Hcl 20 Mg/2 Ml Oral.Conc PO 06/14/22 13:51 25 mg ONCE ONE Administration Medical Decision Making Lab Data 06/14/22 12:02 06/14/22 12:02 Labs: Lab Results 06/14/22 06/14/22 06/14/22 Range/Units 12:02 12:02 12:02 WBC 6.2 (4.8-10.8) X10*3/uL RBC 5.59 D (4.60-5.80) X10*6/uL Hgb 16.9 D (14.0-18.0) g/dl Hct 49.7 (42.0-52.0) % MCV 88.9 (80.0-98.0) fL MCH 30.2 (27.0-33.0) pg MCHC 34.0 (31.0-36.0) g/dl RDW 12.5 (11.0-16.0) % Plt Count 251 (160-400) X10*3/uL MPV 9.7 (9.4-12.4) fL Immature Gran % (Auto) 0.3 (0.0-0.4) % Neut % (Auto) 83.3 H (45-73) % Lymph % (Auto) 10.2 L (20-40) % [place] % (Auto) 5.4 (2-11) % Eos % (Auto) 0.5 (0-4) % Baso % (Auto) 0.3 (0-2) % Lymph # (Auto) 0.6 L (1.2-4.9) X10*3/uL [place] # (Auto) 0.3 (0.1-1.2) X10*3/uL Eos # (Auto) 0.0 (0.0-0.4) X10*3/uL Baso # (Auto) 0.0 (0.0-0.2) X10*3/uL Abs Immat Gran (auto) 0.02 (0.00-0.03) X10*3/uL Absolute Neuts (auto) 5.1 (2.0-8.3) x10*3/uL Absolute Nucleated RBC 0.000 (0.0-0.012) X10*3/uL Nucleated RBC % (auto) 0.0 (0.0-0.2) /100WBC Sodium (135-145) mmol/L Potassium (3.3-5.1) mmol/L Chloride (96-108) mmol/L Carbon Dioxide (22-29) mmol/L Anion Gap (12-20) BUN (9-16) mg/dL Creatinine (0.5-1.4) mg/dL Estim Creat Clear Calc Estimated GFR Random Glucose (60-115) mg/dL Calcium (8.4-10.2) mg/dL Total Bilirubin (0.0-1.0) mg/dL AST (5-37) U/L ALT (0-40) U/L Alkaline Phosphatase (39-117) U/L Troponin I High Sens (<3.5-35.0) ng/L Total Protein (6.5-8.0) g/dL Albumin (3.5-5.0) g/dL COVID-19 ([facility]EN) Negative (Negative) COVID-19 Clin Com See Note Influenza Type A ([facility]) Negative (Negative) Influenza Type B ([facility]) Negative (Negative) Influenza A & B Note See Note 06/14/22 06/14/22 Range/Units 12:02 12:02 WBC (4.8-10.8) X10*3/uL RBC (4.60-5.80) X10*6/uL Hgb (14.0-18.0) g/dl Hct (42.0-52.0) % MCV (80.0-98.0) fL MCH (27.0-33.0) pg MCHC (31.0-36.0) g/dl RDW (11.0-16.0) % Plt Count (160-400) X10*3/uL MPV (9.4-12.4) fL Immature Gran % (Auto) (0.0-0.4) % Neut % (Auto) (45-73) % Lymph % (Auto) (20-40) % [place] % (Auto) (2-11) % Eos % (Auto) (0-4) % Baso % (Auto) (0-2) % Lymph # (Auto) (1.2-4.9) X10*3/uL [place] # (Auto) (0.1-1.2) X10*3/uL Eos # (Auto) (0.0-0.4) X10*3/uL Baso # (Auto) (0.0-0.2) X10*3/uL Abs Immat Gran (auto) (0.00-0.03) X10*3/uL Absolute Neuts (auto) (2.0-8.3) x10*3/uL Absolute Nucleated RBC (0.0-0.012) X10*3/uL Nucleated RBC % (auto) (0.0-0.2) /100WBC Sodium 141 (135-145) mmol/L Potassium 4.0 (3.3-5.1) mmol/L Chloride 102 (96-108) mmol/L Carbon Dioxide 25 (22-29) mmol/L Anion Gap 18 (12-20) BUN 15 (9-16) mg/dL Creatinine 0.91 (0.5-1.4) mg/dL Estim Creat Clear Calc 85.2 Estimated GFR > 60 Random Glucose 102 (60-115) mg/dL Calcium 9.7 (8.4-10.2) mg/dL Total Bilirubin 1.1 H (0.0-1.0) mg/dL AST 28 (5-37) U/L ALT 22 (0-40) U/L Alkaline Phosphatase 78 (39-117) U/L Troponin I High Sens 9.7 (<3.5-35.0) ng/L Total Protein 7.5 (6.5-8.0) g/dL Albumin 4.4 (3.5-5.0) g/dL COVID-19 ([facility]EN) (Negative) COVID-19 Clin Com Influenza Type A ([facility]) (Negative) Influenza Type B ([facility]ITH) (Negative) Influenza A & B Note Discharge Plan Discharge Clinical Impression: Hx of substance abuse, Heroin abuse Patient Disposition: Home, Self-Care Instructions: Polysubstance Abuse (ED), Narcotic Withdrawal (ED) Additional Instructions: Please go to methadone clinic as per control and recovery combat rescue Prescriptions: No Action amoxicillin-pot clavulanate 875-125 mg tablet 1 tab PO Q12H 7 Days Qty: 14 0RF albuterol sulfate 2.5 mg/0.5 mL solution for nebulization 5 mg inhalation Q4H PRN (Reason: shortness of breath or wheezing) Qty: 30 0RF albuterol sulfate 90 mcg/actuation aero powdr breath act w/sensor 90 mcg inhalation Q6H PRN (Reason: shortness of breath or wheezing) Qty: 1 0RF prednisone 20 mg tablet 40 mg PO DAILY 5 Days Qty: 10 0RF albuterol sulfate [ProAir HFA] 90 mcg/actuation HFA aerosol inhaler 1 inh inhalation QID PRN (Reason: shortness of breath or wheezing) Qty: 8.5 0RF Referrals: Zafar Wilson MD [Primary Care Provider] - (Please go to detox) Interventions: ED Discharge Assessment Last Done: 06/14/22 14:17 Discharge Date/Time: 06/14/22 14:18
--- NOTE | 2022-06-14 11:40 | ECG_ITS ---
Test Reason : SOB Blood Pressure : / mmHG Vent. Rate : 098 BPM Atrial Rate : 098 BPM P-R Int : 174 ms QRS Dur : 106 ms QT Int : 368 ms P-R-T Axes : 046 -77 049 degrees QTc Int : 469 ms Normal sinus rhythm Left anterior fascicular block Left ventricular hypertrophy ( R in aVL , [place] product , Romhilt-Tolentino ) Abnormal ECG When compared with ECG of 26-MAY-2021 07:45, Vent. rate has increased BY 39 BPM No significant changes seen Referred By: Parisa Arguelles Electronically Signed By:ERINN SHIELDS
[2022-06-14 12:12] LABS: MANUAL DIFF FLAG NO
[2022-06-14 12:15] LABS: Basophils Percent Auto 0.3 % (0-2); Eosinophils Percent Auto 0.5 % (0-4); Hematocrit 49.7 % (42.0-52.0); Hemoglobin 16.9 g/dl (14.0-18.0); Imm Gran Abs Auto 0.02 X10*3/uL (0.00-0.03); Imm Gran Pct Auto 0.3 % (0.0-0.4); Lymphocytes Absolute Auto 0.6 X10*3/uL (1.2-4.9); Lymphocytes Percent Auto 10.2 % (20-40); Mean Corpuscular Hemoglobin 30.2 pg (27.0-33.0); Mean Corpuscular Volume 88.9 fL (80.0-98.0); Mean Platelet Volume 9.7 fL (9.4-12.4); Monocytes Absolute Auto 0.3 X10*3/uL (0.1-1.2); Monocytes Percent Auto 5.4 % (2-11); Neutrophils Absolute Auto 5.1 x10*3/uL (2.0-8.3); Neutrophils Percent Auto 83.3 % (45-73); Platelet Count 251 X10*3/uL (160-400); Red Blood Count 5.59 X10*6/uL (4.60-5.80); Red Cell Distribution Width 12.5 % (11.0-16.0); White Blood Count 6.2 X10*3/uL (4.8-10.8)
[2022-06-14 12:32] LABS: Alanine Aminotransferase 22 U/L (0-40); Albumin Level 4.4 g/dL (3.5-5.0); Alkaline Phosphatase 78 U/L (39-117); Anion Gap 18 (12-20); Aspartate Amino Transferase 28 U/L (5-37); Bilirubin Total 1.1 mg/dL (0.0-1.0); Blood Urea Nitrogen 15 mg/dL (9-16); Calcium 9.7 mg/dL (8.4-10.2); Carbon Dioxide 25 mmol/L (22-29); Chloride 102 mmol/L (96-108); Creatinine Clr Calc Pharmacy 85.2; Estimated Glomerular Filt Rate > 60; Glucose Random 102 mg/dL (60-115); IDNOW Serial# 9DB6401D; Influenza A Negative (Negative); Influenza B2 Negative (Negative); Sodium 141 mmol/L (135-145); Total Protein 7.5 g/dL (6.5-8.0)
[2022-06-14 12:34] LABS: Troponin-I High Sensitivity 9.7 ng/L (<3.5-35.0)
[2022-06-14 12:59] LABS: COVID-19 Test Negative (Negative); IDNOW Serial# BCCEAD1C
--- NOTE | 2022-06-14 13:33 | ED.GENADULT ---
HPI - General Adult General Chief complaint: Upper Respiratory Symptoms Stated complaint: Diff breathing Time Seen by Provider: 06/14/22 12:38 History of Present Illness HPI narrative: Patient is 67 years olds old complaining of today of having symptom of generalized malaise weakness aches diffuse over the entire body after stop using heroin. Patient claims he usually snorts the soft. Denies any history of IV drug use. Patient complaining of minimal coughing. Feels aches all over. Denies any suicidal homicidal ideation. Patient claims he uses for back pain. He has no focal weakness. He has no new back pain. Patient is from home. Related Data Previous Rx's Medication Instructions Recorded albuterol sulfate 2.5 mg/0.5 mL 5 mg inhalation Q4H PRN shortness 06/08/21 solution for nebulization of breath or wheezing #30 ea albuterol sulfate 90 mcg/actuation 90 mcg inhalation Q6H PRN 06/08/21 breath activated powder shortness of breath or wheezing #1 inhaler,sensor ea albuterol sulfate 90 mcg/actuation 1 inh inhalation QID PRN shortness 06/09/21 aerosol inhaler (ProAir HFA) of breath or wheezing #8.5 grams prednisone 20 mg tablet 40 mg PO DAILY 5 days #10 tabs 06/09/21 amoxicillin 875 mg-potassium 1 tab PO Q12H 7 days #14 tabs 04/04/22 clavulanate 125 mg tablet Allergies Allergy/AdvReac Type Severity Reaction Status Date / Time No Known Allergies Allergy Verified 06/08/21 10:56 [No Known Allergies*] Review of Systems Review of Systems: Positive back pain Positive diffuse body ache Positive minimal cough Yes all other systems are reviewed and are negative [facility] Past Medical History Attestation statement: The following information was validated with the patient. Medical History Generalized anxiety disorder Hx of substance abuse Tick bite of back Surgical History No pertinent past surgical history Family History Family History Father No problems noted. Mother No problems noted. Other Coronary artery disease Substance use disorder Social History Social History Housing: Condominium Alcohol intake: never Patient Tobacco Use Status: Never used Tobacco e-Cigarette/Vaping Use: Never Used Second Hand Smoke Exposure: Yes Substance Use Type: Heroin Advance Directives: No Advance Directives Information Provided: Yes service: No Current occupational status: employed and retired Cognitive needs: No Hearing needs: No Vision needs: No Physical Exam ED Vital Signs: Vital Signs - 24 hr 06/14/22 11:35 Temperature 97.9 F Pulse Rate 114 H Respiratory Rate 20 Blood Pressure 122/90 H Pulse Oximetry 96 Oxygen Delivery Method Room Air BMI result Body Mass Index 25.7 Appearance: Alert. Oriented X3. No acute distress. Eyes: Pupils equal, round and reactive to light. ENT: Pharynx normal. Neck: Normal inspection. Neck supple. No lymph nodes noted. No crepitus CVS: Normal heart rate and rhythm. Pulses normal. Normal S1 and S2 Respiratory: No respiratory distress. Breath sounds normal. No Wheezing. No rales Abdomen: Soft and nontender. No rigidity. No distention. good BS x4 Skin: Skin warm and dry. Normal skin color. Normal skin turgor. Extremities: No lower extremity edema. Neurovascular intact to all extremities. No Lacerations. No Rash Neuro: Oriented X 3. No motor deficit. No sensory deficit. Moving all extermities. No slurred speech Medical Decision Making Medical Decision Making MDM Narrative: Patient's O2 sat is 96% on room air. No acute distress. Lungs are clear. Positive palpitation on the monitor shows a sinus tachycardia. This likely results from narcotic withdrawal. Will start patient on a dose of Suboxone. transit coach operator contacted. Baseline labs ordered x-ray ordered COVID test ordered will monitor crit carefully. Patient with flu COVID RSV are negative Patient's chest x-ray is negative. There is no evidence for pneumonia no evidence for pneumothorax no evidence for rib fracture Patient's troponin is negative patient's EKG is unchanged unlikely cardiac in origin Patient's symptom was precipitated by stopping heroin 2 days prior likely the cause. transit coach operator evaluated patient. Will start patient on a dose of methadone. Will discharge patient to rehab on an outpatient basis. In stable condition. Differential Diagnosis Differential Diagnoses: The differential diagnosis associated with the presentation includes Pneumonia, pneumothorax, heroin withdrawal. Palpitation. Flu COVID RSV Lab Data [facility] Lab Attestation statement: I reviewed the patient's lab results. 06/14/22 12:02 06/14/22 12:02 Labs: Lab Results 06/14/22 06/14/22 06/14/22 Range/Units 12:02 12:02 12:02 WBC 6.2 (4.8-10.8) X10*3/uL RBC 5.59 D (4.60-5.80) X10*6/uL Hgb 16.9 D (14.0-18.0) g/dl Hct 49.7 (42.0-52.0) % MCV 88.9 (80.0-98.0) fL MCH 30.2 (27.0-33.0) pg MCHC 34.0 (31.0-36.0) g/dl RDW 12.5 (11.0-16.0) % Plt Count 251 (160-400) X10*3/uL MPV 9.7 (9.4-12.4) fL Immature Gran % (Auto) 0.3 (0.0-0.4) % Neut % (Auto) 83.3 H (45-73) % Lymph % (Auto) 10.2 L (20-40) % [place] % (Auto) 5.4 (2-11) % Eos % (Auto) 0.5 (0-4) % Baso % (Auto) 0.3 (0-2) % Lymph # (Auto) 0.6 L (1.2-4.9) X10*3/uL [place] # (Auto) 0.3 (0.1-1.2) X10*3/uL Eos # (Auto) 0.0 (0.0-0.4) X10*3/uL Baso # (Auto) 0.0 (0.0-0.2) X10*3/uL Abs Immat Gran (auto) 0.02 (0.00-0.03) X10*3/uL Absolute Neuts (auto) 5.1 (2.0-8.3) x10*3/uL Absolute Nucleated RBC 0.000 (0.0-0.012) X10*3/uL Nucleated RBC % (auto) 0.0 (0.0-0.2) /100WBC Sodium (135-145) mmol/L Potassium (3.3-5.1) mmol/L Chloride (96-108) mmol/L Carbon Dioxide (22-29) mmol/L Anion Gap (12-20) BUN (9-16) mg/dL Creatinine (0.5-1.4) mg/dL Estim Creat Clear Calc Estimated GFR Random Glucose (60-115) mg/dL Calcium (8.4-10.2) mg/dL Total Bilirubin (0.0-1.0) mg/dL AST (5-37) U/L ALT (0-40) U/L Alkaline Phosphatase (39-117) U/L Troponin I High Sens (<3.5-35.0) ng/L Total Protein (6.5-8.0) g/dL Albumin (3.5-5.0) g/dL COVID-19 (ALLEN) Negative (Negative) COVID-19 Clin Com See Note Influenza Type A (LAITH) Negative (Negative) Influenza Type B (LAITH) Negative (Negative) Influenza A & B Note See Note 06/14/22 06/14/22 Range/Units 12:02 12:02 WBC (4.8-10.8) X10*3/uL RBC (4.60-5.80) X10*6/uL Hgb (14.0-18.0) g/dl Hct (42.0-52.0) % MCV (80.0-98.0) fL MCH (27.0-33.0) pg MCHC (31.0-36.0) g/dl RDW (11.0-16.0) % Plt Count (160-400) X10*3/uL MPV (9.4-12.4) fL Immature Gran % (Auto) (0.0-0.4) % Neut % (Auto) (45-73) % Lymph % (Auto) (20-40) % [place] % (Auto) (2-11) % Eos % (Auto) (0-4) % Baso % (Auto) (0-2) % Lymph # (Auto) (1.2-4.9) X10*3/uL [place] # (Auto) (0.1-1.2) X10*3/uL Eos # (Auto) (0.0-0.4) X10*3/uL Baso # (Auto) (0.0-0.2) X10*3/uL Abs Immat Gran (auto) (0.00-0.03) X10*3/uL Absolute Neuts (auto) (2.0-8.3) x10*3/uL Absolute Nucleated RBC (0.0-0.012) X10*3/uL Nucleated RBC % (auto) (0.0-0.2) /100WBC Sodium 141 (135-145) mmol/L Potassium 4.0 (3.3-5.1) mmol/L Chloride 102 (96-108) mmol/L Carbon Dioxide 25 (22-29) mmol/L Anion Gap 18 (12-20) BUN 15 (9-16) mg/dL Creatinine 0.91 (0.5-1.4) mg/dL Estim Creat Clear Calc 85.2 Estimated GFR > 60 Random Glucose 102 (60-115) mg/dL Calcium 9.7 (8.4-10.2) mg/dL Total Bilirubin 1.1 H (0.0-1.0) mg/dL AST 28 (5-37) U/L ALT 22 (0-40) U/L Alkaline Phosphatase 78 (39-117) U/L Troponin I High Sens 9.7 (<3.5-35.0) ng/L Total Protein 7.5 (6.5-8.0) g/dL Albumin 4.4 (3.5-5.0) g/dL COVID-19 (ALLEN) (Negative) COVID-19 Clin Com Influenza Type A (LAITH) (Negative) Influenza Type B (LAITH) (Negative) Influenza A & B Note Independent Interpretation I performed an independent interpretation of an: EKG and Plain X-Ray Interpretation: Patient's EKG showed a sinus pattern heart rate is approximately 100 there is evidence for LVH. [place] QRS QT within normal limits patient EKG is not significantly changed from previous. My interpretation of the patient's x-ray showed no acute infiltrate. Radiology Impression Discussion of test interpretation with radiology: I have reviewed the radiologist's reading. Discharge Plan Discharge Clinical Impression: Hx of substance abuse, Heroin abuse Patient Disposition: Home, Self-Care Instructions: Polysubstance Abuse (ED), Narcotic Withdrawal (ED) Additional Instructions: Please go to methadone clinic as per riding coach Prescriptions: No Action amoxicillin-pot clavulanate 875-125 mg tablet 1 tab PO Q12H 7 Days Qty: 14 0RF albuterol sulfate 2.5 mg/0.5 mL solution for nebulization 5 mg inhalation Q4H PRN (Reason: shortness of breath or wheezing) Qty: 30 0RF albuterol sulfate 90 mcg/actuation aero powdr breath act w/sensor 90 mcg inhalation Q6H PRN (Reason: shortness of breath or wheezing) Qty: 1 0RF prednisone 20 mg tablet 40 mg PO DAILY 5 Days Qty: 10 0RF albuterol sulfate [ProAir HFA] 90 mcg/actuation HFA aerosol inhaler 1 inh inhalation QID PRN (Reason: shortness of breath or wheezing) Qty: 8.5 0RF Referrals: Zafar Wilson MD [Primary Care Provider] - (Please go to detox)
[2022-06-14 13:53] VITALS: BP 116/72; PULSE 87; RESP 16; TEMP 36.9; O2SAT 96
--- NOTE | 2022-06-14 14:03 | MHC.RECOVRN ---
Met with pt in ED12 after request from provider. Pt reports heroin use, 2 bundles daily, [place], last use over a day ago. Pt reports recently being on Suboxone but had stopped going to appointments due to using substances. Pt is actively experiencing withdrawal, including restlessness, anxiety, body aches, stomach cramping. Pt offered Suboxone but declined. Pt would like methadone to address withdrawal symptoms while in the ED. Educated pt on ATS, OTP walk in, [facility]. Pt verbalizes understanding. Discussed with provider, plan to administer 25 mg methadone. Pt to follow up with community providers.
[2022-06-14] MEDS: methADONE HCl 20 MG/2 ML ORAL.CONC 25 MG PO (14:04)
== END 2022-06-14 14:18 | disposition home or self-care (01) ==
PROVIDERS: Nurse Practitioner Family; Emergency Provider Emergency Medicine Emergency Medical Services; PCP Internal Medicine
DX: R06.02 Shortness of breath (principal); R53.83 Other fatigue; F11.10 Opioid abuse, uncomplicated; R05.9 Cough, unspecified; M54.50 Low back pain, unspecified; Z20.822 Contact with and (suspected) exposure to COVID-19; Z20.828 Contact with and (suspected) exposure to other viral communicable diseases; Z79.899 Other long term (current) drug therapy
CPT/HCPCS: 36415; 71046; 80053; 84484; 85025; 87502; 87635; 93005; 99284

== ENCOUNTER 2023-04-09 07:34 | Emergency (ER) | payer MEDICARE, SELFPAY ==
--- NOTE | ~2023-04-09 | XR_ITS ---
EXAMINATION: XR CHEST CLINICAL INFORMATION: Shortness of breath. COMPARISON: 06/14/2022 TECHNIQUE: Frontal view of the chest was obtained. The inferior costophrenic sulci were excluded from [id number] on the first image and, therefore, the radiograph was repeated. FINDINGS: Lungs are well expanded and clear. No acute disease. No interstitial infiltrate, consolidation or pleural effusion. There appears to be a small artifactual opacity of the lateral left lung base on one of these, not present on the second image. Cardiac silhouette has normal size and contour. Pulmonary vascular pattern is normal. Old healed fracture of the mid third of the right clavicle. XR/XR chest 1V IMPRESSION: No acute pulmonary disease.
[2023-04-09 07:57] VITALS: BP 142/85; PULSE 68; RESP 18; TEMP 36.2; O2SAT 93; BMI 29.4
--- NOTE | 2023-04-09 09:27 | ED.GENADULT ---
HPI - General Adult General Chief complaint: Upper Respiratory Symptoms Stated complaint: Diff breathing Time Seen by Provider: 04/09/23 09:03 Source: patient Mode of arrival: ambulatory Limitations: no limitations History of Present Illness HPI narrative: 68-year-old male history of asthma, anxiety presenting to the emergency department with complaints of shortness of breath, productive cough wheezing ongoing for the past few weeks, patient reports he feels wheezy tells me he gets this every year, he reports I get this asthma say every year . Denies cp/sob, fevers,chills, n/v/d,abd pain, sick contacts Related Data Previous Rx's Medication Instructions Recorded albuterol sulfate 2.5 mg/0.5 mL 5 mg inhalation Q4H PRN shortness 06/08/21 solution for nebulization of breath or wheezing #30 ea albuterol sulfate 90 mcg/actuation 90 mcg inhalation Q6H PRN 06/08/21 breath activated powder shortness of breath or wheezing #1 inhaler,sensor ea albuterol sulfate 90 mcg/actuation 1 inh inhalation QID PRN shortness 06/09/21 aerosol inhaler (ProAir HFA) of breath or wheezing #8.5 grams prednisone 20 mg tablet 40 mg (2 x 20 mg) PO DAILY 5 days 06/09/21 #10 tabs amoxicillin 875 mg-potassium 1 tab PO Q12H 7 days #14 tabs 04/04/22 clavulanate 125 mg tablet albuterol sulfate 2.5 mg/3 mL 2.5 mg (3 mL) inhalation Q6H #75 mL 04/09/23 (0.083 %) solution for nebulization albuterol sulfate 90 mcg/actuation 2 inh inhalation Q4-6H PRN 04/09/23 breath activated powder inhaler shortness of breath or wheezing #1 ea doxycycline hyclate 100 mg capsule 100 mg PO BID 10 days #20 caps 04/09/23 prednisone 20 mg tablet 40 mg (2 x 20 mg) PO DAILY 5 days 04/09/23 #10 tabs Allergies Allergy/AdvReac Type Severity Reaction Status Date / Time No Known Allergies Allergy Verified 04/09/23 07:57 [No Known Allergies*] Review of Systems Review of Systems: Constitutional : No Weight loss, No Fever, No Chills, No Fatigue, No Malaise ENT/Mouth : No sore throat, No Rhinorrhea Eyes: No Eye Pain, No Swelling, No Redness Cardiovascular : No Chest Pain, + SOB, No Dyspnea on Exertion, No Orthopnea, No Edema, No Palpitations Respiratory : + Cough, + Sputum, + Wheezing Gastrointestinal : No Nausea, No Vomiting, No Diarrhea, No Constipation, No abdominal Pain, No Hematochezia, No Melena Genitourinary : No Dysuria, No Urinary Frequency, No Hematuria, Musculoskeletal : No joint pain, No Myalgias, No Joint Swelling Skin : No Skin Lesions, No rash Neuro : No Weakness, No Numbness, No Dizziness, No Headache Psych : No Anxiety/Panic, No Depression All other systems reviewed and are negative Yes all other systems are reviewed and are negative [facility] Past Medical History Attestation statement: The following information was validated with the patient. Source: old records reviewed and nursing notes reviewed Onset Date is defined in the Problem List Problems that require an onset date and time if occurred within 24 hrs of arrival to the ED Aortic Dissection and Rupture; Neurologic impairment; Cardiopulmonary Arrest; Endotracheal Intubation; Insertion or Replacement of Mechanical Circulatory Assist Device Medical History Generalized anxiety disorder Tick bite of back Hx of substance abuse Surgical History No pertinent past surgical history Family History Family History Father No problems noted. Mother No problems noted. Other Coronary artery disease Substance use disorder Social History Social History Housing: Condominium Alcohol intake: never Patient Tobacco Use Status: Never used Tobacco Smoked in Last 30 Days: No e-Cigarette/Vaping Use: Never Used Second Hand Smoke Exposure: Yes Use of substances other than those prescribed or required for medical reasons: No Substance Use Type: Heroin Advance Directives: No service: No Current occupational status: employed and retired Cognitive needs: No Hearing needs: No Vision needs: No Physical Exam ED Vital Signs: Vital Signs - 24 hr 04/09/23 07:57 04/09/23 09:40 01/02/24 09:41 Temperature 97.1 F 98.1 F Pulse Rate 68 86 90 Respiratory Rate 18 18 16 Blood Pressure 142/85 H 143/90 H Pulse Oximetry 93 94 Oxygen Delivery Method Room Air Room Air BMI result Body Mass Index 29.4 Course Reevaluation(s) Reevaluation #1: Flu/COVID/RSV negative. Chest x-ray unremarkable. Patient feeling so much better after treatments. Will discharge with treatment for bronchitis. Educated patient on diagnosis and treatment plan, answered all question, patient verbalizes understanding. At this time patient will be discharged home, advised to return with new or worsening symptoms. Educated on worrisome signs and symptoms and when to return. At this time I feel comfortable discharge home. Time: 11:11 Medications Administered Discontinued Medications Generic Name Dose Route Start Last Admin Trade Name Freq PRN Reason Stop Dose Admin Albuterol Sulfate 2.5 mg 04/09/23 09:34 04/09/23 09:39 Albuterol Sulfate (0.083%) 2.5 Mg/3 Ml Vial.Neb INHALE 04/09/23 09:35 2.5 mg ONCE ONE Administration Albuterol/Ipratropium 3 ml 04/09/23 09:34 04/09/23 09:39 Albuterol/Iprat 2.5/0.5mg 3 Ml Ampul.Neb INHALE 04/09/23 09:35 3 ml ONCE ONE Administration Medical Decision Making Medical Decision Making [facility] Narrative: 09 68-year-old male presents with a cough, productive sputum, wheezing, shortness of breath times a few weeks worsening. Physical exam diffuse expiratory wheezes History and physical exam concerning for viral illness versus asthma versus chronic lung condition. Unlikely ACS, dissection, pneumonia, pulmonary embolism. No signs of acute respiratory distress Plan viral testing, x-ray, bronch protocol Differential Diagnosis Differential Diagnoses: The differential diagnosis associated with the presentation includes History and physical exam concerning for viral illness versus asthma versus chronic lung condition. Unlikely ACS, dissection, pneumonia, pulmonary embolism. No signs of acute respiratory distress Admission/Observation Consideration of admission/observation: Escalation of care including admission/observation considered Lab Data [facility] Lab Attestation statement: I reviewed the patient's lab results. Labs: Lab Results 04/09/23 Range/Units 10:20 Influenza Type A (PCR) NEGATIVE (Negative) Influenza Type B (PCR) NEGATIVE (Negative) RSV RNA Qual (PCR) NEGATIVE (Negative) SARS-CoV-2 RNA (RT-PCR) NEGATIVE (Negative) Independent Interpretation I performed an independent interpretation of an: Plain X-Ray Radiology Impression Discussion of test interpretation with radiology: I have reviewed the radiologist's reading. Critical Care Time Critical Care Time Critical Care Time: No Discharge Plan Discharge Clinical Impression: Asthma, Bronchitis Patient Disposition: Home, Self-Care Instructions: Asthma (DC), Acute Bronchitis (ED) Additional Instructions: Take your medications as prescribed. If you were prescribed antibiotics today, it is important that you take your medication to their entirety, do not skip any doses, do not finish them early. Follow-up with your primary care provider this week. Return to the emergency department with new or worsening symptoms. Such as fevers, chills, chest pain, shortness of breath, nausea, vomiting, dizziness, headache, vision changes, lethargy In case of emergency call 911 Prescriptions: New albuterol sulfate 2.5 mg /3 mL (0.083 %) solution for nebulization 2.5 mg inhalation Q6H Qty: 75 0RF albuterol sulfate 90 mcg/actuation aerosol powdr breath activated 2 inh inhalation Q4-6H PRN (Reason: shortness of breath or wheezing) Qty: 1 0RF doxycycline hyclate 100 mg capsule 100 mg PO BID 10 Days Qty: 20 0RF prednisone 20 mg tablet 40 mg PO DAILY 5 Days Qty: 10 0RF No Action amoxicillin-pot clavulanate 875-125 mg tablet 1 tab PO Q12H 7 Days Qty: 14 0RF albuterol sulfate 2.5 mg/0.5 mL solution for nebulization 5 mg inhalation Q4H PRN (Reason: shortness of breath or wheezing) Qty: 30 0RF albuterol sulfate 90 mcg/actuation aero powdr breath act w/sensor 90 mcg inhalation Q6H PRN (Reason: shortness of breath or wheezing) Qty: 1 0RF prednisone 20 mg tablet 40 mg PO DAILY 5 Days Qty: 10 0RF albuterol sulfate [ProAir HFA] 90 mcg/actuation HFA aerosol inhaler 1 inh inhalation QID PRN (Reason: shortness of breath or wheezing) Qty: 8.5 0RF Referrals: Zafar Wilson MD [Primary Care Provider] - 2 days Stand Alone Forms: Work/School Release Interventions: ED Discharge Assessment Last Done: 04/09/23 10:48 Discharge Date/Time: 04/09/23 10:57
--- NOTE | 2023-04-09 09:37 | PC.NURSE ---
RT bedside. pt receiving breathing treatment at this time.
[2023-04-09] MEDS: Albuterol Sulfate (0.083%) 2.5 MG/3 ML VIAL.NEB INHALE (09:39)
[2023-04-09] MEDS: Albuterol/Iprat 2.5/0.5MG 3 ML AMPUL.NEB INHALE (09:39)
[2023-04-09 09:40] VITALS: PULSE 86; RESP 18; O2SAT 96
[2023-04-09 09:41] VITALS: BP 143/90; PULSE 90; RESP 16; TEMP 36.7; O2SAT 94
[2023-04-09 11:02] LABS: Influenza A PCR NEGATIVE (Negative); Influenza B PCR NEGATIVE (Negative); Resp Syncy Virus RNA Qual PCR NEGATIVE (Negative); SARS COV2 PCR INHOUSE NEGATIVE (Negative)
== END 2023-04-09 10:57 | disposition home or self-care (01) ==
PROVIDERS: Physician Assistant; Emergency Provider Emergency Medicine; PCP Internal Medicine
DX: J45.909 Unspecified asthma, uncomplicated (principal); Z20.822 Contact with and (suspected) exposure to COVID-19; Z20.828 Contact with and (suspected) exposure to other viral communicable diseases; R06.02 Shortness of breath
CPT/HCPCS: 0241U; 71045; 94640; 99284

== ENCOUNTER 2023-04-20 07:01 | Emergency (ER) | payer MEDICARE, SELFPAY ==
[2023-04-20 07:17] VITALS: BP 147/90; PULSE 70; RESP 18; TEMP 36.7; O2SAT 94; BMI 29.2
== END 2023-04-20 08:43 | disposition left against medical advice (07) ==
PROVIDERS: Emergency Provider Emergency Medicine; PCP Internal Medicine
DX: Z76.0 Encounter for issue of repeat prescription (principal); J06.9 Acute upper respiratory infection, unspecified
CPT/HCPCS: 99281

== ENCOUNTER 2023-04-24 08:11 | Outpatient (AMB) | payer MEDICARE, SELFPAY ==
[2023-04-24 08:21] VITALS: BP 108/62; PULSE 75; O2SAT 95; BMI 29.8
--- NOTE | 2023-04-24 08:21 | MHC.PC.OV ---
Vital Signs 04/24/23 08:21 Height 6 ft Weight 220 lb BMI 29.8 BP 108/62 Blood Pressure Location Lt brachial Position Sitting Pulse 75 Pulse Source Pulse Oximeter Pulse Oximetry (%) 95 Oxygen Delivery Method Room Air Intake Visit Reasons: [facility] Follow up/Meds Allergies No Known Allergies [No Known Allergies*] Allergy (Verified 04/24/23 08:40) Medication List - Last Reconciled 04/24/23 by Zafar Wilson MD albuterol sulfate 90 mcg/actuation 2 inhalations inhalation Q4-6H PRN albuterol sulfate 2.5 mg (3 mL) inhalation Q6H doxycycline hyclate 100 mg PO BID 10 days methadone 100 mg PO DAILY Tobacco use date assessed: 04/24/23 Fall risk assessment: No Falls in past year Last assessed Fall Risk: 04/24/23 Dental Screening Dental Screen Date: 04/24/23 Did you have a dental visit in the last 12 months?: Yes Did you have a dental problem in the last 6 months where you did not have access to dental care?: No Was dental information given to patient?: Patient has dentist HPI [facility] Follow up/Meds HPI Details 68-year-old male presents to the office after a recent visit to the emergency room. Patient presented to the emergency room with shortness of breath and wheezing. Chest x-ray and lab work later, was diagnosed with bronchitis and discharged home on antibiotics and inhaler. Patient reports that he accidentally dropped all the antibiotics in the toilet and would like a renewal on the prescription. His symptoms of breathing have improved. Since last office visit, patient is now taking methadone 100 mg once a day. He goes to the clinic every day to get it. [facility] Medical History (Updated 04/24/23 @ 08:43 by Zafar Wilson MD) Generalized anxiety disorder Hx of substance abuse Surgical History No pertinent past surgical history Family History Father No problems noted. Mother No problems noted. Other Coronary artery disease Substance use disorder Social History Housing: Condominium Alcohol intake: never Patient Tobacco Use Status: Never used Tobacco e-Cigarette/Vaping Use: Never Used Second Hand Smoke Exposure: Yes Substance Use Type: Heroin service: No Current occupational status: employed and retired Cognitive needs: No Hearing needs: No Vision needs: No Questionnaire PHQ-9 Over the last 2 weeks, how often have you been bothered by any of the following problems? 1. Little interest or pleasure in doing things: not at all 2. Feeling down, depressed, or hopeless: not at all 3. Trouble falling or staying asleep, or sleeping too much: not at all 4. Feeling tired or having little energy: not at all 5. Poor appetite or overeating: not at all 6. Feeling bad about yourself - or that you are a failure or have let yourself or your family down: not at all 7. Trouble concentrating on things, such as reading the newspaper or watching television: not at all 8. Moving or speaking so slowly that other people could have noticed. Or the opposite - being so fidgety or restless that you have been moving around a lot more than usual: not at all 9. Thoughts that you would be better off or of hurting yourself in some way: not at all Total score: 0 Depression Screening Interpretation: Negative Depression Screening Done: Yes Source: Developed by Drs. Stevan Colon, Re Evans, Kojo Tariq and colleagues, with an educational cody from [employer]. Thrive Questionnaire Date Thrive assessed: 04/24/23 I am a: Patient What is your living situation today?: I have a steady place to live Within the past 12 months, did the food you bought not last and you didn't have the money to get more?: Never true Within the past 12 months, did you worry whether your food would run out before you got money to buy more?: Never true Do you have trouble paying for medicines?: No Do you have trouble getting transportation to medical appointments?: No Do you have trouble paying your heating and electricity bill?: No Do you have trouble taking care of your child, family member or friend?: No Do you have trouble with day-to-day activities such as bathing, preparing meals, shopping, managing finances, etc.?: No Are you currently unemployed and looking for a job?: No Are you interested in more education?: No Currently or been in a relationship where the following occur: no concerns reported AUDIT C Alcohol Use Questionnaire (AUDIT-C) 1. How often do you have a drink containing alcohol?: Never Total Score: 0 DAISHA-7 AMB Questionnaire DAISHA-7 Date DAISHA - 7 assessed: 04/24/23 Feeling nervous, anxious, or on edge: 1 = Several days Not being able to stop or control worryin = Several days Worrying too much about different things: 1 = Several days Trouble relaxin = Several days Being so restless that it is hard to sit still: 3 = Nearly every day Becoming easily annoyed or irritable: 0 = Not at all Feeling afraid as if something awful might happen: 0 = Not at all Total DAISHA-7 score (0-4 normal; 5-9 mild; 10-14 moderate; 15-21 severe): 7 Source: Developed by Drs. Stevan Colon, Re Evans, Kojo Tariq and colleagues, with an educational cody from [employer]. Physical exam (Primary Care) Vital Signs: Last Vital Signs Pulse 75 04/24/23 08:21 BP 108/62 04/24/23 08:21 Pulse Ox 95 04/24/23 08:21 Oxygen Delivery Method Room Air 04/24/23 08:21 Care Plan Goal for BP management: Blood pressure is in range on no medications. BMI result Body Mass Index 29.8 Tobacco/Smoking Status: Tobacco use Status Tobacco use date assessed 04/24/23 04/24/23 08:27 Patient Tobacco Use Status Never used Tobacco 04/24/23 08:27 e-Cigarette/Vaping Use Never Used 04/24/23 08:27 PHQ-9: PHQ-9 Score PHQ-9: Total score 0 04/24/23 08:27 Depression Screening Interpretation: Negative Thrive Assessment: Date of Thrive Assessment Date Thrive assessed 04/24/23 04/24/23 08:27 Currently or been in a relationship where the following occur: no concerns reported Const General: cooperative and healthy appearing Nutritional Appearance: well nourished Orientation/consciousness: patient oriented x3 Limitations: no limitations HENMT Head: Yes normal to inspection Eyes General: appearance normal, both eyes and all related structures Neck Neck: Yes normal visual inspection Chest Chest palpation & inspection: normal palpation of entire chest wall Resp Effort & Inspection: normal respiratory effort Neuro General: patient oriented x3 Assessment and Plan Assessment & Plan (1) Hx of substance abuse: Code(s): F19.11 - Other psychoactive substance abuse, in remission Plan: Continue methadone at same dosage. (2) Asthma: Code(s): J45.909 - Unspecified asthma, uncomplicated Plan: 20 minutes spent in reviewing the emergency room notes including the chest x-ray and lab work. Doxycycline has been reordered. (3) Generalized anxiety disorder: Code(s): F41.1 - Generalized anxiety disorder Plan: Currently on no medications. Patient feels his symptoms are well controlled. Orders: Referrals Gastroenterology Referral Z12.11 - Encounter for screening for malignant neoplasm of colon Medications: Refilled doxycycline hyclate 100 mg PO BID 20 caps 0RF 10 days Discontinued albuterol sulfate 90 mcg/actuation (ProAir HFA) Discontinued Reason: Duplicate 1 inh inhalation QID PRN 8.5 grams 0RF shortness of breath or wheezing Coding Level of Care Code Est Pt Level 4 (90973) Diagnoses Hx of substance abuse F19.11 Asthma J45.909 Generalized anxiety disorder F41.1
== END 2023-04-24 08:42 | disposition home or self-care (01) ==
PROVIDERS: PCP Internal Medicine; Visit Provider Internal Medicine
DX: F19.11 Other psychoactive substance abuse, in remission (principal); J45.909 Unspecified asthma, uncomplicated; F41.1 Generalized anxiety disorder
CPT/HCPCS: 99214

== ENCOUNTER 2023-09-18 09:17 | Outpatient (AMB) | payer MEDICARE, SELFPAY ==
--- NOTE | 2023-09-18 09:19 | A.OFFPC_ITS ---
Vital Signs 09/18/23 09:21 Height 6 ft Weight 229 lb 2 oz BMI 31.1 BP 118/72 Blood Pressure Location Lt brachial Position Sitting Pulse 72 Pulse Source Pulse Oximeter Pulse Oximetry (%) 95 Oxygen Delivery Method Room Air Intake Visit Reasons: referral for back pain, hard of hearing Intake Note: Patient is here to follow up on back pain and hard of hearing. 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 Patient reports difficulty on passing urine at times. He was on tamsulosin before. Fifteen years ago he had prostate resection(?) And was on a catheter. Patient does not recollect where the procedure was done. Able to function and do all activities of daily living. The intake for this document states, he is here for back pain and hard of hearing. On asking the patient he does not have those complaints. Continues to be on methadone. Patient did not follow-up on the colonoscopy appointment. [facility] Medical History (Updated 04/24/23 @ 08:43 by Zafar Wilson MD) Generalized anxiety disorder Hx of substance abuse Surgical History No pertinent past surgical history Family History Father No problems noted. Mother No problems noted. Other Coronary artery disease Substance use disorder Social History Housing: Condominium Alcohol intake: never Patient Tobacco Use Status: Never used Tobacco e-Cigarette/Vaping Use: Never Used Second Hand Smoke Exposure: Yes Substance Use Type: Heroin service: No Current occupational status: employed and retired Cognitive needs: No Hearing needs: No Vision needs: No Questionnaire Thrive Questionnaire Date Thrive assessed: 04/24/23 DAISHA-7 AMB Questionnaire DAISHA-7 Date DAISHA - 7 assessed: 04/24/23 Source: Developed by Drs. Steavn Colon, Re Evans, Kojo Tariq and colleagues, with an educational cody from [employer] Physical exam (Primary Care) Vital Signs: Last Vital Signs Pulse 72 09/18/23 09:21 BP 118/72 09/18/23 09:21 Pulse Ox 95 09/18/23 09:21 Oxygen Delivery Method Room Air 09/18/23 09:21 BMI result Body Mass Index 31.1 Tobacco/Smoking Status: Tobacco use Status Tobacco use date assessed 09/18/23 09/18/23 09:26 Patient Tobacco Use Status Never used Tobacco 09/18/23 09:26 e-Cigarette/Vaping Use Never Used 09/18/23 09:26 Thrive Assessment: Date of Thrive Assessment Date Thrive assessed 04/24/23 09/18/23 09:26 Assessment and Plan Assessment & Plan (1) Benign prostatic hyperplasia with elevated prostate specific antigen (PSA): Code(s): N40.0 - Benign prostatic hyperplasia without lower urinary tract symptoms; R97.20 - Elevated prostate specific antigen [PSA] Plan: Tamsulosin ordered. PSA ordered. Will call with results. (2) Generalized anxiety disorder: Code(s): F41.1 - Generalized anxiety disorder Plan: Condition is stable without medications. (3) Hx of substance abuse: Code(s): F19.11 - Other psychoactive substance abuse, in remission Plan: Patient was advised to continue methadone at the same dosage. Orders: Orders Prostate Specific Antigen Scr Today N40.0 - Benign prostatic hyperplasia without lower urinary tract symptoms, R97.20 - Elevated prostate specific antigen [PSA] Liver Panel Today N40.0 - Benign prostatic hyperplasia without lower urinary tract symptoms, R97.20 - Elevated prostate specific antigen [PSA] Thyroid Stimulating Hormone Today N40.0 - Benign prostatic hyperplasia without lower urinary tract symptoms, R97.20 - Elevated prostate specific antigen [PSA] Complete Blood Count no Diff Today N40.0 - Benign prostatic hyperplasia without lower urinary tract symptoms, R97.20 - Elevated prostate specific antigen [PSA] Basic Metabolic Panel Today N40.0 - Benign prostatic hyperplasia without lower urinary tract symptoms, R97.20 - Elevated prostate specific antigen [PSA] Lipid Panel Today N40.0 - Benign prostatic hyperplasia without lower urinary tract symptoms, R97.20 - Elevated prostate specific antigen [PSA] UA and rflx microscopic Today N40.0 - Benign prostatic hyperplasia without lower urinary tract symptoms, R97.20 - Elevated prostate specific antigen [PSA] Medications: New tamsulosin (Flomax) 0.4 mg PO DAILY 90 caps 1RF Refilled albuterol sulfate 2.5 mg (3 mL) inhalation Q6H 75 mL 0RF albuterol sulfate 90 mcg/actuation 2 inhalations inhalation Q4-6H PRN 1 ea 0RF shortness of breath or wheezing Coding Level of Care Code Est Pt Level 4 (73278) Complex EM visit Add On G2211 Diagnoses Benign prostatic hyperplasia with elevated prostate specific antigen (PSA) N40.0; R97.20 Generalized anxiety disorder F41.1 Hx of substance abuse F19.11
[2023-09-18 09:21] VITALS: BP 118/72; PULSE 72; O2SAT 95; BMI 31.1
== END 2023-09-18 09:51 | disposition home or self-care (01) ==
PROVIDERS: PCP Internal Medicine; Visit Provider Internal Medicine
DX: N40.0 Benign prostatic hyperplasia without lower urinary tract symptoms (principal); R97.20 Elevated prostate specific antigen [PSA]; F41.1 Generalized anxiety disorder; F19.11 Other psychoactive substance abuse, in remission
CPT/HCPCS: 99214; G2211

== ENCOUNTER 2023-12-25 08:19 | Outpatient (AMB) | payer MEDICARE, SELFPAY ==
[2023-12-25 08:26] VITALS: BP 120/66; PULSE 75; O2SAT 97; BMI 32.3
--- NOTE | 2023-12-25 08:26 | A.OFFPC_ITS ---
Vital Signs 12/25/23 08:26 Height 6 ft Weight 238 lb BMI 32.3 BP 120/66 Blood Pressure Location Lt brachial Position Sitting Pulse 75 Pulse Source Pulse Oximeter Pulse Oximetry (%) 97 Oxygen Delivery Method Room Air Intake Visit Reasons: 3mof\u Intake Note: Patient is here to follow up on Asthma, DAISHA. Complaint of heart burn and rash on arms and legs Business Banking Sales Assistant Required: No Accompanied by: Self / Same As Patient Allergies No Known Allergies [No Known Allergies*] Allergy (Verified 12/25/23 08:51) Medication List - Last Reconciled 12/25/23 by Zafar Wilson MD albuterol sulfate 2.5 mg (3 mL) inhalation Q6H albuterol sulfate 90 mcg/actuation 2 inhalations inhalation Q4-6H PRN methadone 100 mg PO DAILY tamsulosin (Flomax) 0.4 mg PO DAILY Tobacco use date assessed: 12/25/23 Fall risk assessment: No Falls in past year Last assessed Fall Risk: 12/25/23 Dental Screening Dental Screen Date: 12/25/23 HPI 3mof\u HPI Details 68-year-old male presents to the office to discuss his chronic medical conditions. Patient is requesting a refill on albuterol inhaler. Patient would like another appointment for his screening colonoscopy. He did not respond to the previous appointment. Patient complains of occasional heartburn and would like a PPI. Currently he is having no symptoms. On methadone for his substance abuse problem. He has been 'slipping' on occasions. Tolerating the prostate medications well. Did not get his blood work done before this appointment. [facility] Medical History (Updated 12/25/23 @ 08:56 by Zafar Wilson MD) Urinary hesitancy Generalized anxiety disorder Hx of substance abuse Surgical History No pertinent past surgical history Family History Father No problems noted. Mother No problems noted. Other Coronary artery disease Substance use disorder Social History Housing: Condominium Alcohol intake: never Patient Tobacco Use Status: Never used Tobacco e-Cigarette/Vaping Use: Never Used Second Hand Smoke Exposure: Yes Substance Use Type: Heroin service: No Current occupational status: employed and retired Cognitive needs: No Hearing needs: No Vision needs: No Questionnaire PHQ-9 Over the last 2 weeks, how often have you been bothered by any of the following problems? 1. Little interest or pleasure in doing things: not at all 2. Feeling down, depressed, or hopeless: not at all 3. Trouble falling or staying asleep, or sleeping too much: not at all 4. Feeling tired or having little energy: not at all 5. Poor appetite or overeating: not at all 6. Feeling bad about yourself - or that you are a failure or have let yourself or your family down: not at all 7. Trouble concentrating on things, such as reading the newspaper or watching television: not at all 8. Moving or speaking so slowly that other people could have noticed. Or the opposite - being so fidgety or restless that you have been moving around a lot more than usual: not at all 9. Thoughts that you would be better off or of hurting yourself in some way: not at all Total score: 0 Depression Screening Interpretation: Negative Depression Screening Done: Yes Source: Developed by Drs. Stevan Colon, Re Evans, Kojo Tariq and colleagues, with an educational cody from [email or web address]. Thrive Questionnaire Date Thrive assessed: 12/25/23 I am a: Patient What is your living situation today?: I have a steady place to live Within the past 12 months, did the food you bought not last and you didn't have the money to get more?: Never true Within the past 12 months, did you worry whether your food would run out before you got money to buy more?: Never true Do you have trouble paying for medicines?: No Do you have trouble getting transportation to medical appointments?: No Do you have trouble paying your heating and electricity bill?: No Do you have trouble taking care of your child, family member or friend?: No Do you have trouble with day-to-day activities such as bathing, preparing meals, shopping, managing finances, etc.?: No Are you currently unemployed and looking for a job?: No Are you interested in more education?: No Please select the resources that you would like help with: None Currently or been in a relationship where the following occur: No concerns reported THRIVE Score: 0 AUDIT C Alcohol Use Questionnaire (AUDIT-C) 1. How often do you have a drink containing alcohol?: Never Total Score: 0 DAISHA-7 AMB Questionnaire DAISHA-7 Date DAISHA - 7 assessed: 12/25/23 Feeling nervous, anxious, or on edge: 0 = Not at all Not being able to stop or control worryin = Not at all Worrying too much about different things: 0 = Not at all Trouble relaxin = Not at all Being so restless that it is hard to sit still: 0 = Not at all Becoming easily annoyed or irritable: 0 = Not at all Feeling afraid as if something awful might happen: 0 = Not at all Total DAISHA-7 score (0-4 normal; 5-9 mild; 10-14 moderate; 15-21 severe): 0 Source: Developed by Drs. Stevan Colon, Re Evans, Kojo Tariq and colleagues, with an educational cody from [email or web address]. Physical exam (Primary Care) Vital Signs: Last Vital Signs Pulse 75 12/25/23 08:26 BP 120/66 12/25/23 08:26 Pulse Ox 97 12/25/23 08:26 Oxygen Delivery Method Room Air 12/25/23 08:26 Care Plan Goal for BP management: Blood pressure is in range. BMI result Body Mass Index 32.3 BMI Assessment/Plan discussion: High Tobacco/Smoking Status: Tobacco use Status Tobacco use date assessed 12/25/23 12/25/23 08:30 Patient Tobacco Use Status Never used Tobacco 12/25/23 08:30 e-Cigarette/Vaping Use Never Used 12/25/23 08:30 PHQ-9: PHQ-9 Score PHQ-9: Total score 0 12/25/23 08:43 Depression Screening Interpretation: Negative Thrive Assessment: Date of Thrive Assessment Date Thrive assessed 12/25/23 12/25/23 08:30 Currently or been in a relationship where the following occur: No concerns reported Advance Care Planning discussion: Exists, not on file Date of discussion: 12/25/23 Who was present: Patient Forms completed: Health Care Proxy and [facility] Actual minutes spent: 5 Const General: cooperative and healthy appearing Nutritional Appearance: well nourished Orientation/consciousness: patient oriented x3 Limitations: no limitations HENMT Head: Yes normal to inspection Eyes General: appearance normal, both eyes and all related structures Neck Neck: Yes normal visual inspection Chest Chest palpation & inspection: normal palpation of entire chest wall Resp Effort & Inspection: normal respiratory effort Neuro General: patient oriented x3 Assessment and Plan Assessment & Plan (1) Urinary hesitancy: Code(s): R39.11 - Hesitancy of micturition Plan: Tamsulosin to be continued. PSA will be drawn. (2) Asthma: Code(s): J45.909 - Unspecified asthma, uncomplicated Plan: Albuterol MDI inhaler prescribed. (3) Rash: Code(s): R21 - Rash and other nonspecific skin eruption Plan: Vife-rlq-tauvevh hydrocortisone suggested. (4) Generalized anxiety disorder: Code(s): F41.1 - Generalized anxiety disorder Plan: Condition is stable. (5) Hx of substance abuse: Code(s): F19.11 - Other psychoactive substance abuse, in remission Plan: Continue use of methadone. Orders: Orders Thyroid Stimulating Hormone 12/25/23 J45.909 - Unspecified asthma, uncomplicated, R39.11 - Hesitancy of micturition Complete Blood Count no Diff 12/25/23 J45.909 - Unspecified asthma, uncomplicated, R39.11 - Hesitancy of micturition Basic Metabolic Panel 12/25/23 J45.909 - Unspecified asthma, uncomplicated, R39.11 - Hesitancy of micturition Lipid Panel 12/25/23 J45.909 - Unspecified asthma, uncomplicated, R39.11 - Hesitancy of micturition Liver Panel 12/25/23 J45.909 - Unspecified asthma, uncomplicated, R39.11 - Hesitancy of micturition UA and rflx microscopic 12/25/23 J45.909 - Unspecified asthma, uncomplicated, R 39.11 - Hesitancy of micturition Prostate Specific Antigen Scr 12/25/23 J45.909 - Unspecified asthma, uncomplicated, R39.11 - Hesitancy of micturition Referrals Gastroenterology Referral Z12.11 - Encounter for screening for malignant neoplasm of colon Medications: New omeprazole 20 mg PO DAILY 90 caps 1RF Refilled albuterol sulfate 90 mcg/actuation 2 inhalations inhalation Q4-6H PRN 1 ea 0RF shortness of breath or wheezing Discontinued albuterol sulfate Discontinued Reason: Doctor's Order 2.5 mg (3 mL) inhalation Q6H 75 mL 0RF Coding Level of Care Code Est Pt Level 4 (30061) Complex EM visit Add On G2211 Diagnoses Urinary hesitancy R39.11 Asthma J45.909 Rash R21 Generalized anxiety disorder F41.1 Hx of substance abuse F19.11 Additional Codes Vital Signs *Quality* - Advance Care Planning discussion: Exists, not on file ([id number])
== END 2023-12-25 08:49 | disposition home or self-care (01) ==
PROVIDERS: PCP Internal Medicine; Visit Provider Internal Medicine
DX: R39.11 Hesitancy of micturition (principal); J45.909 Unspecified asthma, uncomplicated; F19.11 Other psychoactive substance abuse, in remission; R21 Rash and other nonspecific skin eruption; F41.1 Generalized anxiety disorder; Z00.00 Encounter for general adult medical examination without abnormal findings

== ENCOUNTER → 2023-12-25 08:19 | Outpatient (BNVA) | payer MEDICARE, SELFPAY | PROVIDERS: PCP Internal Medicine; Visit Provider Internal Medicine | DX: R39.11 Hesitancy of micturition (principal); J45.909 Unspecified asthma, uncomplicated; R21 Rash and other nonspecific skin eruption; F41.1 Generalized anxiety disorder | CPT/HCPCS: 99212 ==

== ENCOUNTER 2024-03-25 10:36 | Outpatient (AMB) | payer MEDICARE, SELFPAY ==
[2024-03-25 10:43] VITALS: BP 126/80; PULSE 71; O2SAT 96; BMI 33.5
--- NOTE | 2024-03-25 10:43 | A.OFFPC_ITS ---
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 Accompanied by: Self / Same As Patient Allergies No Known Allergies [No Known Allergies*] Allergy (Verified 03/25/24 10:44) Tobacco use date assessed: 12/25/23 Fall risk assessment: No Falls in past year Last assessed Fall Risk: 03/25/24 Dental Screening Dental Screen Date: 03/25/24 Did you have a dental visit in the last 12 months?: No Did you have a dental problem in the last 6 months where you did not have access to dental care?: No Was dental information given to patient?: Patient has dentist [facility] Medical History (Updated 12/25/23 @ 08:56 by Zafar Wilson MD) Urinary hesitancy Generalized anxiety disorder Hx of substance abuse Surgical History No pertinent past surgical history Family History Father No problems noted. Mother No problems noted. Other Coronary artery disease Substance use disorder Social History Housing: Condominium Alcohol intake: never Patient Tobacco Use Status: Never used Tobacco e-Cigarette/Vaping Use: Never Used Second Hand Smoke Exposure: Yes Substance Use Type: Heroin service: No Current occupational status: employed and retired Cognitive needs: No Hearing needs: No Vision needs: No Questionnaire PHQ-9 Over the last 2 weeks, how often have you been bothered by any of the following problems? 1. Little interest or pleasure in doing things: not at all 2. Feeling down, depressed, or hopeless: not at all 3. Trouble falling or staying asleep, or sleeping too much: not at all 4. Feeling tired or having little energy: several days 5. Poor appetite or overeating: not at all 6. Feeling bad about yourself - or that you are a failure or have let yourself or your family down: not at all 7. Trouble concentrating on things, such as reading the newspaper or watching television: not at all 8. Moving or speaking so slowly that other people could have noticed. Or the opposite - being so fidgety or restless that you have been moving around a lot more than usual: not at all 9. Thoughts that you would be better off or of hurting yourself in some way: not at all Total score: 1 Source: Developed by Drs. Stevan Colon, Re Evans, Kojo Tariq and colleagues, with an educational cody from [employer]. Thrive Questionnaire Date Thrive assessed: 12/25/23 I am a: Patient What is your living situation today?: I have a steady place to live Within the past 12 months, did the food you bought not last and you didn't have the money to get more?: Never true Within the past 12 months, did you worry whether your food would run out before you got money to buy more?: Never true Do you have trouble paying for medicines?: No Do you have trouble getting transportation to medical appointments?: No Do you have trouble paying your heating and electricity bill?: No Do you have trouble taking care of your child, family member or friend?: No Do you have trouble with day-to-day activities such as bathing, preparing meals, shopping, managing finances, etc.?: No Are you interested in more education?: No Please select the resources that you would like help with: None Currently or been in a relationship where the following occur: No concerns reported THRIVE Score: 0 AUDIT C Alcohol Use Questionnaire (AUDIT-C) 1. How often do you have a drink containing alcohol?: Never Total Score: 0 DAISHA-7 AMB Questionnaire DAISHA-7 Date DAISHA - 7 assessed: 12/25/23 Feeling nervous, anxious, or on edge: 3 = Nearly every day Not being able to stop or control worryin = Not at all Worrying too much about different things: 0 = Not at all Trouble relaxin = Nearly every day Being so restless that it is hard to sit still: 3 = Nearly every day Becoming easily annoyed or irritable: 2 = More than half the days Feeling afraid as if something awful might happen: 0 = Not at all Total DAISHA-7 score (0-4 normal; 5-9 mild; 10-14 moderate; 15-21 severe): 11 Source: Developed by Drs. Stevan Colon, Re Evans, Kojo Tariq and colleagues, with an educational cody from [employer]. Physical exam (Primary Care) Vital Signs: Last Vital Signs Pulse 71 03/25/24 10:43 BP 126/80 03/25/24 10:43 Pulse Ox 96 03/25/24 10:43 Oxygen Delivery Method Room Air 03/25/24 10:43 BMI result Body Mass Index 33.5 Tobacco/Smoking Status: Tobacco use Status Tobacco use date assessed 12/25/23 03/25/24 10:45 Patient Tobacco Use Status Never used Tobacco 03/25/24 10:45 e-Cigarette/Vaping Use Never Used 03/25/24 10:45 PHQ-9: PHQ-9 Score PHQ-9: Total score 1 03/25/24 10:48 Thrive Assessment: Date of Thrive Assessment Date Thrive assessed 12/25/23 03/25/24 10:45 Currently or been in a relationship where the following occur: No concerns reported Office Procedures Flu Questionnaire Does the patient have a severe egg allergy?: No Immunizations Fluarix Triv [id number] (PF) 45 mcg (15 mcg x 3)/0.5 mL IM syringe Performing Provider: Zafar Wilson MD [facility] [place] [facility] Documented (not given) by: PATRIC Solomon on 03/25/24 10:47 Reason Not Given: Received Previously Coding Level of Care Code Est Pt Level 4 (50791) Complex EM visit Add On G2211 Diagnoses Generalized anxiety disorder F41.1 Asthma J45.909 Right knee sprain S83.91XA Screening for colon cancer Z12.11 Assessment & Plan Assessment & Plan (1) Generalized anxiety disorder: Code(s): F41.1 - Generalized anxiety disorder Category: Medical Plan: Currently not on medications. He beleives he is at baseline and prefers no medications. (2) Asthma: Code(s): J45.909 - Unspecified asthma, uncomplicated Category: Medical Plan: Albuterol inhaler called in (3) Right knee sprain: Code(s): S83.91XA - Sprain of unspecified site of right knee, initial encounter Plan: Meloxicam called in. X ray of the knee ordered (4) Screening for colon cancer: Code(s): Z12.11 - Encounter for screening for malignant neoplasm of colon Plan: Patient has cancelled or not shown up for two GI appt made. Now agrees to get the cologard test done. Plan History of Present Illness The patient is a 69-year-old male presenting with right knee pain. The condition has been chronic, with clicking and clacking sounds reported over several years. However, the pain and impairment have significantly worsened over the past month, escalating to a severe state to the point where the patient could not walk outside in the last week. The onset of intense symptoms was noted after the patient climbed a slate roof, further aggravating the knee problem. The patient reports using ibuprofen for pain management but indicates a need for stronger relief. He has not yet sought specialized care but intends to, as recommended by a healthcare provider. The patient is also experiencing knee stiffness, particularly when the leg is fully extended, and has been using a pillow to alleviate discomfort. He has braces available for support at home. In addition to the knee issues, the patient has a history of gastroesophageal reflux disease for which he requires medication refills and has a history of asthma previously managed with an albuterol inhaler. The patient is currently on methadone treatment, taking 140 mg daily, and received a full health check-up the previous week, which showed no concerning findings. Past plans included undergoing colon cancer screening, but this has not yet been completed. 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 - Functional status: Reports limited ability in climbing and physical activities due to knee pain. - Substance use: Methadone therapy for opioid dependence, currently at a daily dose of 140 mg. Review of Systems - Musculoskeletal: Reports severe right knee pain and stiffness. - Gastrointestinal: Denies current heartburn but requires medication refills. - Respiratory: Requires a refill for asthma medication. - General: Reports generally feeling well aside from specific complaints mentioned. Physical Exam General: Appearance normal, both eyes and all related structures Nutritional Appearance: Well nourished Orientation/consciousness: Patient oriented x3 Limitations: Right knee pain, difficulty walking, requires brace Head: Normal to inspection Neck: Normal visual inspection Chest: Normal palpation of entire chest wall Respiratory: Normal respiratory effort Neurology: Patient oriented x3 Results Plan - Order a right knee X-ray to further assess the osteoarthritis condition. - Prescribe meloxicam for pain management of knee osteoarthritis, as an alternative to ibuprofen. - Provide a prescription renewal for gastroesophageal reflux disease and asthma inhaler. - Plan for stool-based colorectal cancer screening using Cologuard for non- invasive testing, advising the patient to complete it at home. - Continue with methadone therapy as per the current regimen for opioid dependence. Patient was informed and verbally consented to the use of an ambient scribe for clinic note documentation during this visit. Discussion Notes I discussed the need for obtaining a right knee X-ray to evaluate the underlying cause of pain, likely associated with osteoarthritis. For pain management, I recommended switching from ibuprofen to meloxicam for potentially improved efficacy. We discussed the importance of regular screening for colorectal cancer, offering a home-based stool test via Cologuard as a convenient option. I addressed the need for medication refills for gastroesophageal reflux and asthma and confirmed the patient's understanding of continuing methadone as a stable regimen. We reviewed the patient's physical limitations due to knee pain and emphasized the use of knee braces for support. Patient Instructions - Obtain a right knee X-ray as soon as possible. - Start taking meloxicam as prescribed for knee pain. - Ensure medication refills at [facility] for heartburn and asthma medications. - Complete the Cologuard test at home for colorectal cancer screening when it arrives by mail. - Use knee braces for additional support if needed. - Continue with daily methadone as recommended. - Follow fasting instructions before scheduled blood work. - Report any new or worsening symptoms to the clinic promptly. Orders: Orders Influenza [id number] Immunization Today Z23 - Encounter for immunization Liver Panel Today F41.1 - Generalized anxiety disorder, J45.909 - Unspecified asthma, uncomplicated UA and rflx microscopic Today F41.1 - Generalized anxiety disorder, J45.909 - Unspecified asthma, uncomplicated Basic Metabolic Panel Today F41.1 - Generalized anxiety disorder, J45.909 - Unspecified asthma, uncomplicated Complete Blood Count no Diff Today F41.1 - Generalized anxiety disorder, J45.909 - Unspecified asthma, uncomplicated Lipase Today F41.1 - Generalized anxiety disorder, J45.909 - Unspecified asthma, uncomplicated, K85.90 - Acute pancreatitis without necrosis or infection, unspecified Lipid Panel Today F41.1 - Generalized anxiety disorder, J45.909 - Unspecified asthma, uncomplicated Thyroid Stimulating Hormone Today F41.1 - Generalized anxiety disorder, J45.909 - Unspecified asthma, uncomplicated Prostate Specific Antigen Scr Today F41.1 - Generalized anxiety disorder, J45.909 - Unspecified asthma, uncomplicated Medications: Refilled albuterol sulfate 90 mcg/actuation 1 inh inhalation QID PRN 6.7 grams 1RF shortness of breath or wheezing omeprazole 20 mg PO DAILY 90 caps 1RF
== END 2024-03-25 11:11 | disposition home or self-care (01) ==
PROVIDERS: PCP Internal Medicine; Visit Provider Internal Medicine
DX: F41.1 Generalized anxiety disorder (principal); J45.909 Unspecified asthma, uncomplicated; S83.91XA Sprain of unspecified site of right knee, initial encounter; Z12.11 Encounter for screening for malignant neoplasm of colon; Z23 Encounter for immunization

== ENCOUNTER → 2024-03-25 10:36 | Outpatient (BNVA) | payer MEDICARE, SELFPAY | PROVIDERS: PCP Internal Medicine; Visit Provider Internal Medicine | DX: F41.1 Generalized anxiety disorder (principal); J45.909 Unspecified asthma, uncomplicated; S83.91XD Sprain of unspecified site of right knee, subsequent encounter | CPT/HCPCS: 90471; 96127; 99212 ==

== ENCOUNTER 2024-08-06 09:07 | Outpatient (AMB) | payer MEDICARE, SELFPAY ==
--- NOTE | 2024-08-06 09:20 | MHC.PC.OV ---
Vital Signs 08/06/24 09:23 Height 6 ft Weight 245 lb 2 oz BMI 33.2 BP 130/70 Blood Pressure Location Lt brachial Position Sitting Pulse 87 Pulse Source Pulse Oximeter Temp 97.1 F Temp Source Temporal Artery Scan Pulse Oximetry (%) 97 Oxygen Delivery Method Room Air Intake Visit Reasons: 3 month f/u - see comments Intake Note: Patient is here to follow up on Asthma. Request a referral dermatology for skin tag and rash on right rodriguez. 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: Not Required per policy Accompanied by: Self / Same As Patient Allergies No Known Allergies [No Known Allergies*] Allergy (Verified 08/06/24 09:22) Tobacco use date assessed: 08/06/24 Fall risk assessment: No Falls in past year Last assessed Fall Risk: 08/06/24 Dental Screening Dental Screen Date: 08/06/24 Did you have a dental visit in the last 12 months?: No Did you have a dental problem in the last 6 months where you did not have access to dental care?: No Was dental information given to patient?: Patient has dentist [facility] Medical History (Updated 12/25/23 @ 08:56 by Zafar Wilson MD) Urinary hesitancy Generalized anxiety disorder Hx of substance abuse Surgical History No pertinent past surgical history Family History Father No problems noted. Mother No problems noted. Other Coronary artery disease Substance use disorder Social History Housing: Condominium Alcohol intake: never Patient Tobacco Use Status: Never used Tobacco e-Cigarette/Vaping Use: Never Used Second Hand Smoke Exposure: Yes Substance Use Type: Heroin service: No Current occupational status: employed and retired Cognitive needs: No Hearing needs: No Vision needs: No Questionnaire PHQ-9 Over the last 2 weeks, how often have you been bothered by any of the following problems? 1. Little interest or pleasure in doing things: not at all 2. Feeling down, depressed, or hopeless: not at all 3. Trouble falling or staying asleep, or sleeping too much: not at all 4. Feeling tired or having little energy: not at all 5. Poor appetite or overeating: not at all 6. Feeling bad about yourself - or that you are a failure or have let yourself or your family down: not at all 7. Trouble concentrating on things, such as reading the newspaper or watching television: not at all 8. Moving or speaking so slowly that other people could have noticed. Or the opposite - being so fidgety or restless that you have been moving around a lot more than usual: not at all 9. Thoughts that you would be better off or of hurting yourself in some way: not at all Total score: 0 Depression Screening Interpretation: Negative Depression Screening Done: Yes Source: Developed by Drs. Stevan Colon, Re Evans, Kojo Tariq and colleagues, with an educational cody from [employer]. Thrive Questionnaire Date Thrive assessed: 08/06/24 I am a: Patient What is your living situation today?: I have a steady place to live Within the past 12 months, did the food you bought not last and you didn't have the money to get more?: Often true Within the past 12 months, did you worry whether your food would run out before you got money to buy more?: Often true Do you have trouble paying for medicines?: No Do you have trouble getting transportation to medical appointments?: No Do you have trouble paying your heating and electricity bill?: No Do you have trouble taking care of your child, family member or friend?: No Do you have trouble with day-to-day activities such as bathing, preparing meals, shopping, managing finances, etc.?: No Are you currently unemployed and looking for a job?: No Are you interested in more education?: No Please select the resources that you would like help with: None Currently or been in a relationship where the following occur: No concerns reported THRIVE Score: 2 AUDIT C Alcohol Use Questionnaire (AUDIT-C) 1. How often do you have a drink containing alcohol?: Never Total Score: 0 DAISHA-7 AMB Questionnaire DAISHA-7 Date DAISHA - 7 assessed: 08/06/24 Feeling nervous, anxious, or on edge: 0 = Not at all Not being able to stop or control worryin = Not at all Worrying too much about different things: 0 = Not at all Trouble relaxin = Not at all Being so restless that it is hard to sit still: 0 = Not at all Becoming easily annoyed or irritable: 0 = Not at all Feeling afraid as if something awful might happen: 0 = Not at all Total DAISHA-7 score (0-4 normal; 5-9 mild; 10-14 moderate; 15-21 severe): 0 Source: Developed by Drs. Stevan Colon, Re Evans, Kojo Tariq and colleagues, with an educational cody from [employer]. Physical exam (Primary Care) Vital Signs: Last Vital Signs Temp 97.1 F 08/06/24 09:23 Pulse 87 08/06/24 09:23 BP 130/70 08/06/24 09:23 Pulse Ox 97 08/06/24 09:23 Oxygen Delivery Method Room Air 08/06/24 09:23 BMI result Body Mass Index 33.2 Tobacco/Smoking Status: Tobacco use Status Tobacco use date assessed 08/06/24 08/06/24 09:33 Patient Tobacco Use Status Never used Tobacco 08/06/24 09:33 e-Cigarette/Vaping Use Never Used 08/06/24 09:33 PHQ-9: PHQ-9 Score PHQ-9: Total score 0 08/06/24 09:33 Depression Screening Interpretation: Negative Thrive Assessment: Date of Thrive Assessment Date Thrive assessed 08/06/24 08/06/24 09:33 Currently or been in a relationship where the following occur: No concerns reported Coding Level of Care Code Est Pt Level 4 (53262) Complex EM visit Add On G2211 Diagnoses Hx of substance abuse F19.11 Generalized anxiety disorder F41.1 Rash R21 Assessment & Plan Assessment & Plan (1) Hx of substance abuse: Code(s): F19.11 - Other psychoactive substance abuse, in remission Category: Medical Plan: Continue methadone at current dosage. (2) Generalized anxiety disorder: Code(s): F41.1 - Generalized anxiety disorder Category: Medical Plan: Condition is stable. (3) Rash: Code(s): R21 - Rash and other nonspecific skin eruption Category: Medical Plan: Dermatology appointment requested Plan History of Present Illness The patient is a 69-year-old male presenting with a multitude of concerns requiring attention. He notably requests a refill for his asthma inhaler, a therapy he has relied upon for effective management of his chronic condition. The patient also describes occasional episodes of heartburn, indicative of potential gastroesophageal reflux, though they are intermittent with no clear pattern identified. Dermatological issues of concern include several skin tags on his neck, which have been persistent and recently one experienced bleeding, prompting a request for removal. Additionally, he mentions a dermatological rash present on his ankles, though details surrounding its onset or triggers are limited. An incomplete colonoscopy screening process further highlights his visit, where the patient noted not receiving a sent Cologuard testing kit, which was critical for colon cancer screening. The patient additionally agrees to conduct necessary blood work following this visit, acknowledging its importance in ongoing health monitoring. Social History - Housing: Lives with another individual, noted as the lady I live with. Review of Systems - Respiratory: Reports asthma. - Gastrointestinal: Reports occasional heartburn symptoms. - Dermatological: Reports skin tags on the neck, recent bleeding from one tag, and a rash on the ankles. Physical Exam General: Cooperative and healthy appearing Nutritional Appearance: Well nourished Orientation/consciousness: Patient oriented x3 Limitations: No limitations Head: Normal to inspection General: Appearance normal, both eyes and all related structures Neck: Normal visual inspection Chest: Normal palpation of entire chest wall Respiratory: Patient reports asthma and requests a refill for the asthma pump. ormal respiratory effort Neurology: Patient oriented x3 Results Plan - Refill asthma inhaler prescription. - Recommend lifestyle modifications for heartburn; assess for medication adjustments if needed. - Refer for dermatological evaluation of skin tags and ankle rash. - Ensure the patient receives a Cologuard kit for colorectal cancer screening. - Reinforce the immediate completion of blood work. Patient was informed and verbally consented to the use of an ambient scribe for clinic note documentation during this visit. Discussion Notes Today, I discussed with the patient the current status of his asthma control and the necessity of maintaining his medication regimen through timely refills. Addressing GERD symptoms, I highlighted lifestyle and dietary considerations that may mitigate heartburn episodes and opened the possibility of pharmacologic intervention if needed. The dermatological referral for the management of skin tags and rash was thoroughly considered, explaining the rationale for specialist involvement due to the recent bleeding and new rash symptoms. For the overdue colonoscopy, I reiterated the preventive significance of colorectal screening, emphasizing the need to locate the Cologuard kit. Blood work was prioritized for completion, underpinning its role in comprehensive health monitoring. The importance of coordinating care and ensuring follow-up relies on effective communication with healthcare specialists and adherence to prescribed plans. Patient Instructions - Continue using asthma inhaler as directed. - Follow dietary and lifestyle changes for heartburn management. - Visit a gauge checker for skin tags and ankle rash evaluation. - Complete blood work today as arranged. - Ensure to check and follow up on the Cologuard test for colonoscopy screening. - Return for follow-up in three months. Medications: Refilled albuterol sulfate 90 mcg/actuation 1 inh inhalation QID PRN 6.7 grams 1RF shortness of breath or wheezing omeprazole 20 mg PO DAILY 90 caps 1RF tamsulosin (Flomax) 0.4 mg PO DAILY 90 caps 1RF
[2024-08-06 09:23] VITALS: BP 130/70; PULSE 87; TEMP 36.2; O2SAT 97; BMI 33.2
--- OUTSIDE RECORDS SUMMARY | 2024-08-06 09:46 | XMS_ITS | Clinical Summary ---
Author Organization [facility] ity Address [address] [place] [address] Care Team Providers Care Weight Loss Centre Manager Name Role Phone Ani Lugo MD Primary Care Provider [phone] Medical History Medical History Date Comments Actinic keratoses DX:Actinic ker atoses Family History Medical History Relation Name Comments Melanoma Neg Hx Social History Tobacco Use Types Packs/Day Years Used Date Smoking Tobacco: Never Smokeless Tobacco: Never Sex and Gender Information Value Date Recorded Sex Assigned at Not on file Legal Sex Male 7:47 AM EST Gender Identity Not on file Sexual Orientation Not on file Obstetrics History Plan of Treatment Health Maintenance Due Date Last Done Comments DTaP,Tdap,and Td Vaccines (1 - Tdap) 1973 Pneumococcal Vaccine: 50+ Ye ars (1 of 1 - PCV) 01/18/2004 Zoster Vaccines (1 of 2) 01/18/2004 COVID-19 Vaccine ( - 2023-2 5 season) 2023 Influenza Vaccine (Season Ended) 2024 RSV Immunization Adult Patie nts (1 - 1-dose 75+ series) 2029 HIB Vaccines Aged Out No longer eligi ble based on patient's age to complete this topic HPV Vaccines Aged Out No longer eligi ble based on patient's age to complete this topic Hepatitis A Vaccines Aged Out No long er eligible based on patient's age to complete this topic Hepatitis B Vaccines Aged Out No long er eligible based on patient's age to complete this topic IPV Vaccines Aged Out No longer eligi ble based on patient's age to complete this topic MMR Vaccines Aged Out No longer eligi ble based on patient's age to complete this topic Meningococcal ACWY Vaccine Aged Out N o longer eligible based on patient's age to complete this topic Meningococcal B Vaccine Aged Out No l onger eligible based on patient's age to complete this topic RSV Immunization Patients Un rochelle 20 months Aged Out No longer eligible b ased on patient's age to complete this topic Varicella Vaccines Aged Out No longer eligible based on patient's age to complete this topic Care Teams Weight Loss Centre Manager Relationship Specialty Start Date End Date Ani Lugo MD [address] [place] [address] PCP - General Internal Medicine 05/23/18
== END 2024-08-06 09:58 | disposition home or self-care (01) ==
LOC: HO.HMCH 09:07
PROVIDERS: PCP Internal Medicine; Visit Provider Internal Medicine
DX: F19.11 Other psychoactive substance abuse, in remission (principal); F41.1 Generalized anxiety disorder; R21 Rash and other nonspecific skin eruption

== ENCOUNTER → 2024-08-06 09:07 | Outpatient (BNVA) | payer MEDICARE, SELFPAY | PROVIDERS: PCP Internal Medicine; Visit Provider Internal Medicine | DX: J45.909 Unspecified asthma, uncomplicated (principal); F19.11 Other psychoactive substance abuse, in remission; F41.1 Generalized anxiety disorder; R21 Rash and other nonspecific skin eruption | CPT/HCPCS: 96127; 99212 ==

== ENCOUNTER 2024-12-09 07:38 | Outpatient (REF) | payer MEDICARE, SELFPAY ==
--- OUTSIDE RECORDS SUMMARY | 2024-12-09 07:41 | XMS_ITS | Clinical Summary ---
Author Organization [facility] Address [address] [facility] [address] [place] [address] Phone Care Team Providers Care Cytotechnologist Name Role Phone Ani Lugo MD Primary Care Provider + Allergies No known active allergies Medications No known medications Social History Tobacco Use Types Packs/Day Years Used Date Smoking Tobacco: Never Smokeless Tobacco: Never Alcohol Use Standard Drinks/Week Comments No 0 (1 standard drink = 0.6 oz pur e alcohol) Education Answer Date Recorded Are you interested in more education? Not on alysha e 08/03/2022 Are you concerned about learning? Not on file 08/03/2022 No 08/03/2022 No 08/03/2022 Digital Access Answer Date Recorded No 09/04/2022 No 09/04/2022 No 09/04/2022 Reliable internet access at home? Not on file 09/04/2022 Device with a working camera? Not on file Sex and Gender Information Value Date Recorded Sex Assigned at Male 05/18/2018 2:29 PM EST Legal Sex Male 2:00 PM EST Gender Identity Male 05/18/2018 2:29 PM EST Sexual Orientation Straight 05/18/2018 2: 29 PM EST Last Filed Vital Signs Vital Sign Reading Time Taken Comments Blood Pressure 150/90 05/18/2018 2:28 PM EST Pulse 68 05/18/2018 2:28 PM EST Temperature 36.4 C (97.5 F) 05/18/2018 2:28 PM EST Respiratory Rate 16 05/18/2018 2:28 PM EST Oxygen Saturation 98% 05/18/2018 2:28 PM EST Inhaled Oxygen Concentration - - Weight 113.4 kg (250 lb) 05/18/2018 2:28 PM EST Height 182.9 cm (6') 05/18/2018 2:28 PM EST Body Mass Index 33.91 05/18/2018 2:28 PM EST Plan of Treatment Not on file Medical Devices Not on file Insurance [address] [facility] [address] [employer] WELLSENSE NON NSPG PCP SILVER [employer]ARITY CONNE[employer]CARE WELLSENSE NON NSPG PCP S[employer] CONNE[employer] [address] [facility] [address] TOVA ALVES WELLSENSE NON NSPG PCP SILVER CLARITY CONNECTORCARE WELLSENSE NON NSPG PCP SILVER CLARITY CONNECTORCARE WELLSENSE NON NSPG PCP SILVER CLARITY CONNECTORCARE WELLSENSE NON NSPG PCP SILVER CLARITY CONNECTORCARE WELLSENSE NON NSPG PCP SILVER CLARITY CONNECTORCARE WELLSENSE NON NSPG PCP SILVER CLARITY CONNECTORCARE WELLSENSE NON NSPG PCP SILVER CL[employer]ITY CONNE[employer] Care Teams Cytotechnologist Relationship Specialty Start Date End Date Ani Lugo MD [address] [facility] [place] [address] PCP - General Internal Medicine 05/18/18 Additional Source Comments The information contained in this document represents components of the legal health record. It is not the complete legal health record.[facility]
--- OUTSIDE RECORDS SUMMARY | 2024-12-09 07:41 | XMS_ITS | Clinical Summary ---
Author Organization [facility] ity Address [address] [place] [address] Care Team Providers Care Body Hanger Name Role Phone Ani Lugo MD Primary Care Provider +1- [phone] Medical History Medical History Date Comments Actinic [...] 01/18/2004 Zoster Vaccines (1 of 2) 01/18/2004 Depression Screening 04/08/2024 COVID-19 Vaccine (1 - 2023-2 5 season) 2024 Influenza Vaccine (#1) 2024 RSV Immunization Adult Patie nts (1 [...] age to complete this topic Care Teams Body Hanger Relationship Specialty Start Date End Date Ani Lugo MD [address] [place] [address] PCP - General Internal Medicine 05/23/18
[2024-12-09 08:44] LABS: Hematocrit 44.6 % (42.0-52.0); Hemoglobin 14.6 g/dl (14.0-18.0); Mean Corpuscular HGB Conc 32.7 g/dl (31.0-36.0); Mean Corpuscular Hemoglobin 30.1 pg (27.0-33.0); Mean Corpuscular Volume 92.0 fL (80.0-98.0); NRBC Abs Auto 0.000 X10*3/uL (0.0-0.012); NRBC Pct Auto 0.0 /100WBC (0.0-0.2); Platelet Count 188 X10*3/uL (160-400); Red Blood Count 4.85 X10*6/uL (4.60-5.80); White Blood Count 6.2 X10*3/uL (4.8-10.8)
[2024-12-09 09:09] LABS: Appearance Urine Clear; Glucose Urine UA Negative (Negative); PH 6.0 (5.0-9.0); Specific Gravity - Urine 1.020 (1.005-1.025)
[2024-12-09 09:33] LABS: Alanine Aminotransferase 20 U/L (0-40); Albumin Level 4.3 g/dL (3.5-5.0); Alkaline Phosphatase 86 U/L (39-117); Anion Gap 12 (12-20); Aspartate Amino Transferase 26 U/L (5-37); Blood Urea Nitrogen 16 mg/dL (9-16); Calcium 9.2 mg/dL (8.4-10.2); Carbon Dioxide 29 mmol/L (22-29); Chloride 105 mmol/L (96-108); Cholesterol 198 mg/dL (<200); Estimated Glomerular Filt Rate > 60; HDL Cholesterol 60 mg/dL (>40); Lipase 17 U/L (8-78); Potassium 4.8 mmol/L (3.3-5.1); Sodium 141 mmol/L (135-145); Total Protein 7.8 g/dL (6.5-8.0); Triglycerides 57 mg/dL (<150)
[2024-12-09 09:39] LABS: Thyroid Stimulating Hormone 0.59 uIU/mL (0.32-4.0)
== END 2024-12-09 07:39 | disposition home or self-care (01) ==
LOC: HO.LAB 07:38
PROVIDERS: PCP Internal Medicine; Visit Provider Internal Medicine
DX: F41.1 Generalized anxiety disorder (principal); K85.90 Acute pancreatitis without necrosis or infection, unspecified; J45.909 Unspecified asthma, uncomplicated; Z12.5 Encounter for screening for malignant neoplasm of prostate
CPT/HCPCS: 36415; 80048; 80061; 80076; 81003; 83690; 84153; 84443; 85027

== ENCOUNTER 2024-12-10 10:13 | Outpatient (AMB) | payer MEDICARE, SELFPAY ==
--- NOTE | 2024-12-10 10:25 | A.OFFPC_ITS ---
Vital Signs 12/10/24 10:26 Height 6 ft Weight 241 lb BMI 32.7 BP 110/62 Blood Pressure Location Lt brachial Position Sitting Pulse 73 Pulse Source Pulse Oximeter Temp 96.9 F Temp Source Temporal Artery Scan Pulse Oximetry (%) 93 Oxygen Delivery Method Room Air Intake Visit Reasons: 3 month f/u - see comments Intake Note: Patient is here to follow up on Asthma, Hx of Substance abuse. Farm Agent Required: No Media Production Operator: Not Required per policy Accompanied by: Self / Same As Patient Allergies No Known Allergies (No Known Allergies*) Allergy (Verified 12/10/24 19:14) Medication List - Last Reconciled 12/10/24 by Zafar Wilson MD albuterol sulfate 90 mcg/actuation 1 inh inhalation QID PRN methadone 100 mg PO DAILY omeprazole 20 mg PO DAILY tamsulosin (Flomax) 0.4 mg PO DAILY Tobacco use date assessed: 12/10/24 Fall risk assessment: No Falls in past year Last assessed Fall Risk: 12/10/24 Dental Screening Dental Screen Date: 08/06/24 HPI 3 month f/u - see comments HPI Details 69-year-old male presents to the office to discuss his chronic medical conditions. Patient is at baseline state of health. Able to function and do all activities of daily living. He finally got his appointment to see the vessel master. Needs a few prescriptions refilled. [facility] Medical History (Updated 12/10/24 @ 19:18 by Zafar Wilson MD) GERD (gastroesophageal reflux disease) Urinary hesitancy Generalized anxiety disorder Hx of substance abuse Surgical History No pertinent past surgical history Family History Father No problems noted. Mother No problems noted. Other Coronary artery disease Substance use disorder Social History Housing: Condominium Alcohol intake: never Patient Tobacco Use Status: Never used Tobacco e-Cigarette/Vaping Use: Never Used Second Hand Smoke Exposure: No Substance Use Type: Heroin service: No Current occupational status: employed and retired Cognitive needs: No Hearing needs: No Vision needs: No Questionnaire Thrive Questionnaire Date Thrive assessed: 08/06/24 I am a: Patient What is your living situation today?: I have a steady place to live Within the past 12 months, did the food you bought not last and you didn't have the money to get more?: Often true Within the past 12 months, did you worry whether your food would run out before you got money to buy more?: Often true Do you have trouble paying for medicines?: No Do you have trouble getting transportation to medical appointments?: No Do you have trouble paying your heating and electricity bill?: No Do you have trouble taking care of your child, family member or friend?: No Do you have trouble with day-to-day activities such as bathing, preparing meals, shopping, managing finances, etc.?: No Are you currently unemployed and looking for a job?: No Are you interested in more education?: No Please select the resources that you would like help with: None Currently or been in a relationship where the following occur: No concerns reported THRIVE Score: 2 DAISHA-7 AMB Questionnaire DAISHA-7 Date DAISHA - 7 assessed: 08/06/24 Source: Developed by Drs. Stevan Colon, Re Evans, Kojo Tariq and colleagues, with an educational cody from [employer]. Physical exam (Primary Care) Vital Signs: Last Vital Signs Temp 96.9 F 12/10/24 10:26 Pulse 73 12/10/24 10:26 BP 110/62 12/10/24 10:26 Pulse Ox 93 12/10/24 10:26 Oxygen Delivery Method Room Air 12/10/24 10:26 BMI result Body Mass Index 32.7 Tobacco/Smoking Status: Tobacco use Status Tobacco use date assessed 12/10/24 12/10/24 10:36 Patient Tobacco Use Status Never used Tobacco 12/10/24 10:36 e-Cigarette/Vaping Use Never Used 12/10/24 10:36 Thrive Assessment: Date of Thrive Assessment Date Thrive assessed 08/06/24 12/10/24 10:36 Currently or been in a relationship where the following occur: No concerns reported Const General: cooperative and healthy appearing Nutritional Appearance: well nourished Orientation/consciousness: patient oriented x3 Limitations: no limitations HENMT Head: Yes normal to inspection Eyes General: appearance normal, both eyes and all related structures Neck Neck: Yes normal visual inspection Chest Chest palpation & inspection: normal palpation of entire chest wall Resp Effort & Inspection: normal respiratory effort Neuro General: patient oriented x3 Coding Level of Care Code Est Pt Level 4 (98432) Complex EM visit Add On G2211 Diagnoses Generalized anxiety disorder F41.1 GERD (gastroesophageal reflux disease) K21.9 Urinary hesitancy R39.11 Assessment & Plan Assessment & Plan (1) Generalized anxiety disorder: Code(s): F41.1 - Generalized anxiety disorder Category: Medical Plan: Condition is at baseline. Continue methadone at same dosage. (2) GERD (gastroesophageal reflux disease): Code(s): K21.9 - Gastro-esophageal reflux disease without esophagitis Category: Medical Plan: Continue PPI at same dosage. (3) Urinary hesitancy: Code(s): R39.11 - Hesitancy of micturition Category: Medical Plan: Continue medication at same dosage.
[2024-12-10 10:26] VITALS: BP 110/62; PULSE 73; TEMP 36.1; O2SAT 93; BMI 32.7
--- OUTSIDE RECORDS SUMMARY | 2024-12-10 11:31 | XMS_ITS | Clinical Summary ---
Author Organization [facility] Address [address] [facility] [address] [place] [address] Phone Care Team Providers Care Reference And Instruction Librarian Name Role Phone Ani Lugo MD Primary [...] file Medical Devices Not on file Insurance WELLSENSE NON NSPG PCP SILVER CL[employer]ITY CONNE[employer]CARE WELLSENSE NON NSPG PCP SILVER CL[employer]ITY CONNECTORCARE WELLSENSE NON NSPG PCP SILVER CLARITY CONNECTORCARE WELLSENSE NON NSPG PCP SILVER CLARITY CONNECTORCARE WELLSENSE NON NSPG PCP SILVER CLARITY CONNECTORCARE WELLSENSE NON NSPG PCP SILVER CLARITY CONNECTORCARE WELLSENSE NON NSPG PCP SILVER CL[employer]ITY CONNECTORCARE Care Teams Reference And Instruction Librarian Relationship Specialty Start Date End Date Ani Lugo MD [address] [facility] [place] [address] PCP - General Internal Medicine 05/18/18 Additional Source Comments The information contained in this document represents components of the legal health record. It is not the complete legal health record.[facility]
--- OUTSIDE RECORDS SUMMARY | 2024-12-10 11:31 | XMS_ITS | Clinical Summary ---
Author Organization [facility] ity Address [address] [place] [address] Care Team Providers Care Receiving Weigher Name Role Phone Ani Lugo MD Primary Care Provider +1- [phone] Medical History Medical History Date Comments Actinic [...] age to complete this topic Care Teams Receiving Weigher Relationship Specialty Start Date End Date Ani Lugo MD [address] [place] [address] PCP - General Internal Medicine 05/23/18
== END 2024-12-10 11:40 | disposition home or self-care (01) ==
LOC: HO.HMCH 10:13
PROVIDERS: PCP Internal Medicine; Visit Provider Internal Medicine
DX: F41.1 Generalized anxiety disorder (principal); K21.9 Gastro-esophageal reflux disease without esophagitis; R39.11 Hesitancy of micturition

== ENCOUNTER → 2024-12-10 10:13 | Outpatient (BNVA) | payer MEDICARE, SELFPAY | PROVIDERS: PCP Internal Medicine; Visit Provider Internal Medicine | DX: F41.1 Generalized anxiety disorder (principal); K21.9 Gastro-esophageal reflux disease without esophagitis; R39.11 Hesitancy of micturition | CPT/HCPCS: 99212 ==

== ENCOUNTER 2025-04-05 07:47 | Emergency (ER) | payer MEDICARE, SELFPAY ==
--- NOTE | ~2025-04-05 | XR_ITS ---
EXAMINATION: XR CHEST CLINICAL INFORMATION: cough COMPARISON: 04/09/2023, 06/14/2022. TECHNIQUE: Frontal view of the chest was obtained. FINDINGS: The cardiac, hilar, and mediastinal contours are normal. The lungs are clear bilaterally. Mild pulmonary hyperaeration. No pneumothorax or effusion. No suspicious osseous or soft tissue abnormality. Old right clavicular fracture incidentally noted. XR/XR chest 1V IMPRESSION: No active pulmonary disease. Electronically signed by: Max Saunders MD 04/05/2025 08:18 AM [facility] [place]
[2025-04-05 07:47] VITALS: BP 163/77; PULSE 107; RESP 24; TEMP 36.6; O2SAT 91; BMI 35.0
--- NOTE | 2025-04-05 07:54 | ECG_ITS ---
Test Reason : sob Blood Pressure : */* mmHG Vent. Rate : 75 BPM Atrial Rate : 75 BPM P-R Int : 188 ms QRS Dur : 110 ms QT Int : 406 ms P-R-T Axes : 41 -71 45 degrees QTcB Int : 453 ms Normal sinus rhythm Left anterior fascicular block Moderate voltage criteria for LVH, may be normal variant ( R in aVL , [place] product ) Septal infarct , age undetermined Abnormal ECG When compared with ECG of 14-Jun-2022 12:03, No significant change was found Referred By: Dot Feliz Electronically Signed By: ERINN SHIELDS
--- NOTE | 2025-04-05 07:55 | ED_ITS ---
HPI - Asthma General Chief Complaint: Asthma Stated Complaint: asthma Time Seen by Provider: 04/05/25 07:54 Source: patient, family and old records reviewed Mode of arrival: ambulatory Limitations: no limitations History of Present Illness ED Provider: KEATON LUBIN Narrative: 70-year-old male with past medical history of GERD, asthma since childhood - he is not a smoker but does live with a smoker, substance abuse history, anxiety, PRN albuterol use and nebulizer but no long-term maintenance inhalers who presents with complaint of intermittent wheezing and asthma x1 week. He states the warmth in the heat trigger it. He has no chest pain, fevers, sputum production. He denies any other symptoms. Came in he states he needs more prednisone. In urgent care placed him on 3 days of prednisone about a week ago he states it helped but it did not last long. He denies any other symptoms or concerns MD complaint: asthma attack Onset (ago): week(s) (1) Severity: moderate Context: smoke exposure Associated symptoms: dry cough Asthma History: childhood onset Treatments Prior to Arrival: inhaled bronchodilator Related Data Home Medications ?Medication ?Instructions ?Recorded ?Confirmed methadone 40 mg soluble tablet 100 mg PO DAILY 4 12/10/24 Previous Rx's ?Medication ?Instructions ?Recorded albuterol sulfate 90 mcg/actuation 1 inh inhalation QI D PRN shortness 08/06/24 aerosol inhaler of breath or wheezing #6.7 g bowen omeprazole 20 mg capsule,delayed 20 mg PO DAILY #90 ca ps 08/06/24 release tamsulosin 0.4 mg capsule (Flomax) 0.4 mg PO DAILY #90 caps 08/06/24 albuterol sulfate 2.5 mg/3 mL 2.5 mg (3 mL) inhalation Q4-6H PRN 04/05/25 (0.083 %) solution for nebulization bronchospasm #75 m L azithromycin 250 mg tablet See Rx Instructions PO .COM PLEX #6 04/05/25 tabs budesonide-formoterol HFA 80 1 puff inhalation BID #10 .2 grams 04/05/25 mcg-4.5 mcg/actuation aerosol inhaler (Symbicort) prednisone 10 mg tablet See Taper PO DIRECTED #20 tabs 04/05/25 prednisone 10 mg tablet See Taper PO DIRECTED #30 tabs 04/05/25 Allergies Allergy/AdvReac Type Severity Reaction Status Date / Time No Known Allergies (No Known Allergy Verified 04/05/25 07:50 Allergies*) Review of Systems 2 Review of Systems: Yes all other systems are reviewed and are negative [facility] Past Medical History Attestation statement: The following information was validated with the patient. Source: old records reviewed Medical History GERD (gastroesophageal reflux disease) Urinary hesitancy Generalized anxiety disorder Hx of substance abuse Surgical History No pertinent past surgical history Family History Family History Father No problems noted. Mother No problems noted. Other Coronary artery disease Substance use disorder Social History Social History [facility] Alcohol intake: never Patient Tobacco Use Status: Never used Tobacco e-Cigarette/Vaping Use: Never Used Second Hand Smoke Exposure: No Substance Use Type: Heroin Advance Directives: No Advance Directives Information Provided: Yes Do you have a plan to hurt others: No Plan service: No Current occupational status: employed and retired Cognitive needs: No Hearing needs: No Vision needs: No Physical Exam 2 Vital Signs: Vital Signs: Last Vital Signs Temp 98.4 F 04/05/25 11:28 Pulse 93 04/05/25 11:28 Resp 18 04/05/25 11:28 BP 145/82 H 04/05/25 11:28 Pulse Ox 93 04/05/25 11:28 O2 Del Method Room Air 04/05/25 11:28 BMI result Body Mass Index 35.0 Appearance: Alert. Oriented X3. No acute distress. Eyes: Pupils equal, round and reactive to light. ENT: Pharynx normal. Neck: Normal inspection. Neck supple. CVS: Normal heart rate and rhythm. Pulses normal. Respiratory: No respiratory distress. Breath sounds diffuse expiratory and inspiratory wheezes throughout Abdomen: Soft and nontender. Skin: Skin warm and dry. Normal skin color. Normal skin turgor. Extremities: No lower extremity edema. Neuro: Oriented X 3. No motor deficit. No sensory deficit. Medications Administered Discontinued Medications Generic Name Dose Route Start Last Admin Trade Name Freq PRN Reason Stop Dose Admin Magnesium Sulfate 2 gm in 50 mls @ 150 mls/hr 04/05/25 07:53 04/05/25 09:28 Magnesium Sulfate/H2o IV 04/05/25 08:12 Infused ONCE ONE Infusion Ceftriaxone Sodium 1 gm/ 50 mls @ 100 mls/hr 04/05/25 07:53 04/05/25 10:00 Sodium Chloride IV 04/05/25 08:22 Infused ONCE ONE Infusion Methylprednisolone Sodium Succinate 60 mg 04/05/25 07:53 04/05/25 09:06 Methylprednisolone Sod Succ 125 Mg/2 Ml Vial IVPUSH 04/05/25 07:54 60 mg ONCE ONE Administration Medical Decision Making Medical Decision Making MDM Narrative: 70-year-old male with past medical history of GERD, asthma since childhood - he is not a smoker but does live with a smoker, substance abuse history, anxiety here with complaint of asthma for the last 1 week. He was given a short course 3 days of steroids last week that improved but he states it did not last long enough. Has no chest pain, no lower extremity edema, no infectious symptoms. Given his wheezing and sat of 91% I am going to start him on IV steroids, IV magnesium, nebulizer protocol. He is to get basic labs, EKG, chest x-ray for pneumonia. Given the long-term symptoms and his chronic asthma he will be started on antibiotics as well. If he responds and improves plan to DC home with prednisone taper, antibiotics and once he is off of steroid taper we will start him on maintenance inhaler. Differential Diagnosis Differential Diagnoses: The differential diagnosis associated with the presentation includes Viral syndrome, asthma, pneumonia Admission/Observation Consideration of admission/observation: Escalation of care including admission/observation considered Patient is 93% on room air he still has some mild expiratory wheezes he does not want admission he states [place] [address] to go [address] Lab Data [facility] Lab Attestation statement: I reviewed the patient's lab results. 04/05/25 08:46 04/05/25 08:46 Labs: Lab Results 04/05/25 04/05/25 Range/Units 08:46 09:04 WBC 6.1 (4.8-10.8) X10*3/uL RBC 4.64 (4.60-5.80) X10*6/uL Hgb 14.1 (14.0-18.0) g/dl Hct 43.0 (42.0-52.0) % MCV 92.7 (80.0-98.0) fL MCH 30.4 (27.0-33.0) pg MCHC 32.8 (31.0-36.0) g/dl RDW 13.5 (11.0-16.0) % Plt Count 189 (160-400) X10*3/uL MPV 10.1 (9.4-12.4) fL Immature Gran % (Auto) 0.2 (0.0-0.4) % Neut % (Auto) 64.6 (45-73) % Lymph % (Auto) 15.7 L (20-40) % King % (Auto) 9.0 (2-11) % Eos % (Auto) 9.8 H (0-4) % Baso % (Auto) 0.7 (0-2) % Lymph # (Auto) 1.0 L (1.2-4.9) X10*3/uL King # (Auto) 0.6 (0.1-1.2) X10*3/uL Eos # (Auto) 0.6 H (0.0-0.4) X10*3/uL Baso # (Auto) 0.0 (0.0-0.2) X10*3/uL Abs Immat Gran (auto) 0.01 (0.00-0.03) X10*3/uL Absolute Neuts (auto) 4.0 (2.0-8.3) x10*3/uL Absolute Nucleated RBC 0.000 (0.0-0.012) X10*3/uL Nucleated RBC % (auto) 0.0 (0.0-0.2) /100WBC VBG pH 7.41 (7.32-7.43) VBG pCO2 44 mmHg VBG pO2 69 mmHg VBG HCO3 28 H (22-26) mmol/L VBG O2 Saturation 93.0 % VBG Base Excess 3.2 mmol/L Sodium 140 (135-145) mmol/L Potassium 4.1 (3.3-5.1) mmol/L Chloride 106 (96-108) mmol/L Carbon Dioxide 28 (22-29) mmol/L Anion Gap 10 L (12-20) BUN 14 (9-16) mg/dL Creatinine 0.95 (0.5-1.4) mg/dL Estim Creat Clear Calc 94.2 Estimated GFR > 60 Random Glucose 102 (60-115) mg/dL Lactic Acid 1.0 (0.5-2.0) mmol/L Calcium 9.2 (8.4-10.2) mg/dL Magnesium 2.1 (1.6-2.6) mg/dL Total Bilirubin 0.3 (0.0-1.0) mg/dL Direct Bilirubin 0.2 (0.0-0.5) mg/dL AST 26 (5-37) U/L ALT 23 (0-40) U/L Alkaline Phosphatase 84 (39-117) U/L Troponin I High Sens 7.1 (<3.5-35.0) ng/L C-Reactive Protein 0.52 H (< or = 0.50) mg/dL Total Protein 7.5 (6.5-8.0) g/dL Albumin 4.1 (3.5-5.0) g/dL Influenza Type A (PCR) NEGATIVE (Negative) Influenza Type B (PCR) NEGATIVE (Negative) RSV RNA Qual (PCR) NEGATIVE (Negative) SARS-CoV-2 RNA (RT-PCR) NEGATIVE (Negative) Independent Interpretation I performed an independent interpretation of an: EKG and Plain X-Ray (No pneumonia noted) Interpretation: Rate: 75 Rhythm: NSR [place]: left Normal P waves. Normal TYRESE. Normal QRS complex. ST T wave : normal no LICHA qTC: 453 prior studies: no change from prior The study has been interpreted contemporaneously by me. . Radiology Impression Discussion of test interpretation with radiology: I have reviewed the radiologist's reading. Independent Historian Clinical information obtained from an independent historian. History obtained from or confirmed by: Friend External Record Review External record reviewed: Outpatient record and Prior outpatient labs Prescription Management I considered prescription management with: Antibiotic and Other Discharge Plan Discharge Clinical Impression: Chronic obstructive asthma with exacerbation Patient Disposition: Home, Self-Care Instructions: Wheezing (ED) Additional Instructions: Your labs were reassuring You do not have COVID, flu, RSV Your chest x-ray did not show any pneumonia Next dose of prednisone is at dinnertime tonight please make sure you take it Return for any worsening symptoms or concerns he were offered admission you can come back at any time monitor your oxygen levels make sure you do not drop below 90% After you are done with the antibiotics and the prednisone taper please start the daily maintenance inhaler make sure you rinse your mouth after you take the inhaler Prescriptions: New prednisone 10 mg tablet See Taper PO DIRECTED Qty: 20 0RF Taper: Prednisone 40 mg daily for 2 Days and 0 Hour 30 mg daily for 2 Days and 0 Hour 20 mg daily for 2 Days and 0 Hour 10 mg daily for 2 Days and 0 Hour Rx Instructions: see taper instructions albuterol sulfate 2.5 mg /3 mL (0.083 %) solution for nebulization 2.5 mg inhalation Q4-6H PRN (Reason: bronchospasm) Qty: 75 0RF azithromycin 250 mg tablet See Rx Instructions .ROUTE .COMPLEX Qty: 6 0RF Rx Instructions: For 250 mg dose pack: take 500 mg today (day 1), then 250 mg for 4 days (days 2-5) budesonide-formoterol [Symbicort] 80-4.5 mcg/actuation HFA aerosol inhaler 1 puff inhalation BID Qty: 10.2 0RF prednisone 10 mg tablet See Taper PO DIRECTED Qty: 30 0RF Taper: Prednisone 40 mg daily for 3 Days and 0 Hour 30 mg daily for 3 Days and 0 Hour 20 mg daily for 3 Days and 0 Hour 10 mg daily for 3 Days and 0 Hour Rx Instructions: see taper instructions No Action methadone 40 mg tablet,soluble 100 mg PO DAILY albuterol sulfate 90 mcg/actuation HFA aerosol inhaler 1 inh inhalation QID PRN (Reason: shortness of breath or wheezing) Qty: 6.7 1RF omeprazole 20 mg capsule,delayed release(DR/EC) 20 mg PO DAILY Qty: 90 1RF tamsulosin [Flomax] 0.4 mg capsule 0.4 mg PO DAILY Qty: 90 1RF Interventions: ED Discharge Assessment Last Done: 04/05/25 11:28 Discharge Date/Time: 04/05/25 11:30 Print Language: Estonian
--- OUTSIDE RECORDS SUMMARY | 2025-04-05 08:06 | XMS_ITS | Clinical Summary ---
Author Organization [facility] ity Address [address] [place] [address] Care Team Providers Care Mental Retardation Aide Name Role Phone Ani Lugo MD Primary Care Provider +1- [phone] Medical History Medical History Date Comments Actinic [...] on file Sexual Orientation Not on file Plan of Treatment Health Maintenance Due Date Last Done Comments DTaP,Tdap,and Td Vaccines (1 - Tdap) 1974 Pneumococcal Vaccine: 50+ Ye ars (1 of 1 - PCV) 01/18/2004 Zoster Vaccines (1 of 2) 01/18/2004 Depression Screening 04/08/2024 COVID-19 Vaccine (1 - 2024-2 6 season) 2024 Influenza Vaccine (#1) 2024 RSV [...] age to complete this topic Care Teams Mental Retardation Aide Relationship Specialty Start Date End Date Ani Lugo MD [address] [place] [address] PCP - General Internal Medicine 05/23/18
--- OUTSIDE RECORDS SUMMARY | 2025-04-05 08:07 | XMS_ITS | Clinical Summary ---
Author Organization [facility] Address [address] [facility] [address] [place] [address] Phone Care Team Providers Care Housing Quality Standard Inspector Name Role Phone Ani Lugo MD Primary [...] Medical Devices Not on file Insurance [address] [facility] [address] [employer] WELLSENSE NON NSPG PCP SILVER CLARITY CONNECTORCARE WELLSENSE NON NSPG PCP SILVER [employer]ITY CONNECTORCARE [address] [facility] [address] TOVA ALVES WELLSENSE NON NSPG PCP SILVER CLARITY CONNECTORCARE WELLSENSE NON NSPG PCP SILVER CLARITY CONNECTORCARE WELLSENSE NON NSPG PCP SILVER CLARITY CONNECTORCARE WELLSENSE NON NSPG PCP SILVER CLARITY CONNECTORCARE WELLSENSE NON NSPG PCP SILVER CLARITY CONNECTORCARE WELLSENSE NON NSPG PCP SILVER CLARITY CONNECTORCARE WELLSENSE NON NSPG PCP SILVER CL[employer]ITY CONNECTORCARE Care Teams Housing Quality Standard Inspector Relationship Specialty Start Date End Date Ani Lugo MD [address] [facility] Family Medicine & [place] [address] PCP - General Internal Medicine 05/18/18 Additional Source Comments The information contained in this document represents components of the legal health record. It is not the complete legal health record.[facility]
--- NOTE | 2025-04-05 08:52 | PC.RT ---
Pt states he is doing much better and does not want a treatment at this time
[2025-04-05 09:05] LABS: MANUAL DIFF FLAG NO
[2025-04-05] MEDS: Magnesium Sulfate/H2O 2 GM/50 ML PIGGYBACK IV (09:06)
[2025-04-05 09:08] LABS: Venous Blood Gas Refer to POC result
[2025-04-05 09:08] LABS: Hematocrit 43.0 % (42.0-52.0); Hemoglobin 14.1 g/dl (14.0-18.0); Imm Gran Abs Auto 0.01 X10*3/uL (0.00-0.03); Imm Gran Pct Auto 0.2 % (0.0-0.4); Lymphocytes Absolute Auto 1.0 X10*3/uL (1.2-4.9); Mean Corpuscular HGB Conc 32.8 g/dl (31.0-36.0); Mean Corpuscular Hemoglobin 30.4 pg (27.0-33.0); Mean Corpuscular Volume 92.7 fL (80.0-98.0); NRBC Abs Auto 0.000 X10*3/uL (0.0-0.012); NRBC Pct Auto 0.0 /100WBC (0.0-0.2); Platelet Count 189 X10*3/uL (160-400); Red Blood Count 4.64 X10*6/uL (4.60-5.80); White Blood Count 6.1 X10*3/uL (4.8-10.8)
[2025-04-05 09:09] LABS: VBG HCO3 28 mmol/L (22-26); VBG O2 % Saturation 93.0 %
[2025-04-05 09:22] LABS: Alanine Aminotransferase 23 U/L (0-40); Albumin Level 4.1 g/dL (3.5-5.0); Alkaline Phosphatase 84 U/L (39-117); Anion Gap 10 (12-20); Aspartate Amino Transferase 26 U/L (5-37); Blood Urea Nitrogen 14 mg/dL (9-16); Calcium 9.2 mg/dL (8.4-10.2); Carbon Dioxide 28 mmol/L (22-29); Chloride 106 mmol/L (96-108); Creatinine Clr Calc Pharmacy 94.2; Estimated Glomerular Filt Rate > 60; Magnesium 2.1 mg/dL (1.6-2.6); Potassium 4.1 mmol/L (3.3-5.1); Sodium 140 mmol/L (135-145); Total Protein 7.5 g/dL (6.5-8.0)
[2025-04-05 09:29] LABS: Troponin-I High Sensitivity 7.1 ng/L (<3.5-35.0)
[2025-04-05 09:51] LABS: Resp Syncy Virus RNA Qual PCR NEGATIVE (Negative); SARS COV2 PCR INHOUSE NEGATIVE (Negative)
[2025-04-05 10:42] VITALS: BP 145/82; PULSE 93; RESP 18; TEMP 36.9; O2SAT 93
[2025-04-05 11:28] VITALS: BP 145/82; PULSE 93; RESP 18; TEMP 36.9; O2SAT 93
== END 2025-04-05 11:30 | disposition home or self-care (01) ==
PROVIDERS: Emergency Provider Emergency Medicine; PCP Internal Medicine
DX: J45.901 Unspecified asthma with (acute) exacerbation (principal); R05.9 Cough, unspecified; R06.02 Shortness of breath; R94.31 Abnormal electrocardiogram [ECG] [EKG]; Z03.818 Encounter for observation for suspected exposure to other biological agents ruled out; Z79.899 Other long term (current) drug therapy
CPT/HCPCS: 36415; 71045; 80048; 80076; 82803; 83605; 83735; 84484; 85025; 86140; 87040; 87637; 93005; 96365; 96366; 96375; 99284; J0696; J2919; J3475

== ENCOUNTER → 2025-04-05 07:54 | Outpatient (BNV) | payer MEDICARE, SELFPAY | PROVIDERS: Emergency Provider Emergency Medicine; PCP Internal Medicine; Visit Provider Radiology Diagnostic Radiology | DX: R05.9 Cough, unspecified (principal) | CPT/HCPCS: 71045 ==

== ENCOUNTER → 2025-04-05 07:54 | Outpatient (BNV) | payer MEDICARE, SELFPAY | PROVIDERS: Emergency Provider Emergency Medicine; PCP Internal Medicine; Visit Provider Internal Medicine | DX: I44.4 Left anterior fascicular block (principal) | CPT/HCPCS: 93010 ==